=== PATIENT | female | born 1975 | race American Indian/Alaskan Native ===

== ENCOUNTER 2022-09-14 20:40 | Inpatient (IN) | payer MEDICAID ==
[2022-09-14] MEDS ORDERED: Sodium Chloride 0.9% 10 ML Syringe FLUSH PRN (20:42)
[2022-09-14] MEDS ORDERED: Sodium Chloride 0.9% 1,000 ML IV ONE (20:43)
[2022-09-14] MEDS ORDERED: cefTRIAXone 1 GM Vial IVPUSH ONE (20:43)
[2022-09-14] MEDS ORDERED: Ondansetron 4 MG/2 ML SDV IVPUSH ONE (20:47)
[2022-09-14] MEDS ORDERED: Acetaminophen 650 MG Supp RECTAL ONE (20:48)
[2022-09-14 21:21] LABS: HEMATOCRIT 35.5 % (33.0-47.0); HEMOGLOBIN 12.2 g/dL (12.0-16.0); MEAN CORPUSCULAR HEMOGLOBIN 31.6 pg (26.0-32.0); MEAN CORPUSCULAR HGB CONC 34.4 g/dL (32.0-36.0); PLATELET COUNT,PLT 411 x10^3/uL (130-400); RED BLOOD CELL COUNT 3.86 x10^6/uL (4.00-5.50)
[2022-09-14 21:30] LABS: WHITE BLOOD CELL COUNT,WBC 25.8 x10^3/uL (4.0-10.0)
[2022-09-14 21:38] LABS: BAND PERCENT MAN 7 % (0-6); LYMPHOCYTES ABSOLUTE MAN 8.8 x10^3/uL (1.0-4.8); LYMPHOCYTES PERCENT MAN 34 % (25-50); MONOCYTES ABSOLUTE MAN 1.8 x10^3/uL (0.0-0.8); MONOCYTES PERCENT MAN 7 % (2-11); NEUTROPHILS ABSOLUTE MAN 15.2 x10^3/uL (1.8-7.7); PLATELET COUNT ESTIMATE INCREASED; SEG NEUTROPHILS PERCENT MAN 52 % (50-80); TOXIC GRANULATION 1+ SLIGHT; VACUOLATED NEUTROPHILS RARE
[2022-09-14 21:40] LABS: A/G RATIO 0.81; ALBUMIN 3.8 g/dL (3.4-5.0); BILIRUBIN TOTAL 0.6 mg/dL (0.2-1.0); CALCIUM 9.7 mg/dL (8.5-10.1); CREATININE 1.3 mg/dL (0.55-1.02); EST CRCL DRUG DOSING (CG) 46.69 mL/min; POTASSIUM,K 5.5 mmol/L (3.5-5.1); PROTEIN TOTAL,TP 8.5 g/dL (6.4-8.2)
[2022-09-14 21:42] LABS: ANION GAP 18.5 mmol/L (5-15)
[2022-09-14] MEDS ORDERED: VANCOmycin 2 GM/400 ML 2 GM in Premix Bag 1 BAG IV ONE (21:46)
[2022-09-14 21:48] LABS: APPEARANCE,URINE CLEAR (CLEAR); BILIRUBIN,URINE NEGATIVE (NEGATIVE); COLOR,URINE LIGHT YELLOW (YELLOW); GLUCOSE,URINE NEGATIVE (NEGATIVE); KETONES,URINE NEGATIVE (NEGATIVE); LEUKOCYTE ESTERASE,URINE NEGATIVE (NEGATIVE); NITRITE,URINE NEGATIVE (NEGATIVE); OCCULT BLOOD,URINE NEGATIVE (NEGATIVE); PH,URINE 8.5 (5.0-8.0); PROTEIN,URINE TRACE mg/dL (NEGATIVE); UROBILINOGEN,URINE 0.2 EU/dL (0.2)
[2022-09-14] MEDS ORDERED: Piperacillin/Tazobactam 3.375 GM in Sodium Chloride 0.9% 100 ML IV ONE (21:49)
[2022-09-14 21:57] LABS: BACTERIA,URINE NOT SEEN /HPF (NOT SEEN); HYALINE CASTS,URINE RARE; MUCUS,URINE NOT SEEN /LPF (NOT SEEN); RBC,URINE 0-5 /HPF (NOT SEEN); SQUAMOUS EPITHELIAL CELLS,UR RARE /HPF (NOT SEEN); WBC,URINE 0-5 /HPF (NOT SEEN)
[2022-09-14] MEDS ORDERED: Sodium Chloride 0.9% 500 ML IV ONE (22:29)
[2022-09-14] MEDS ORDERED: Hydrocortisone 20 MG Tab PO ONE (22:30)
[2022-09-15] MEDS: Acetaminophen 325 MG Tab PO PRN ×3 (00:42→21:22)
[2022-09-15] MEDS: Sodium Chloride 0.9% 1,000 ML IV SCH (01:40)
[2022-09-15] MEDS ORDERED: oxyCODONE 5 MG Tab PO ONE (02:39)
[2022-09-15 06:50] LABS: HEMATOCRIT 34.6 % (33.0-47.0); HEMOGLOBIN 11.5 g/dL (12.0-16.0); MEAN CORPUSCULAR HEMOGLOBIN 31.4 pg (26.0-32.0); MEAN CORPUSCULAR HGB CONC 33.2 g/dL (32.0-36.0); MEAN CORPUSCULAR VOLUME 94.5 fL (78.0-93.0); PLATELET COUNT,PLT 286 x10^3/uL (130-400); RED BLOOD CELL COUNT 3.66 x10^6/uL (4.00-5.50)
[2022-09-15 06:52] LABS: WHITE BLOOD CELL COUNT,WBC 21.7 x10^3/uL (4.0-10.0)
[2022-09-15 07:07] LABS: ANION GAP 21.7 mmol/L (5-15); CALCIUM 8.7 mg/dL (8.5-10.1); CREATININE 1.4 mg/dL (0.55-1.02); EST CRCL DRUG DOSING (CG) 43.36 mL/min; POTASSIUM,K 4.7 mmol/L (3.5-5.1)
[2022-09-15 07:10] LABS: BAND PERCENT MAN 2 % (0-6); LYMPHOCYTES ABSOLUTE MAN 5.6 x10^3/uL (1.0-4.8); LYMPHOCYTES PERCENT MAN 26 % (25-50); MONOCYTES ABSOLUTE MAN 1.1 x10^3/uL (0.0-0.8); MONOCYTES PERCENT MAN 5 % (2-11); SEG NEUTROPHILS PERCENT MAN 67 % (50-80); STOMATOCYTES 1+ SLIGHT; TOXIC GRANULATION 1+ SLIGHT
[2022-09-15 07:11] LABS: PLATELET COUNT ESTIMATE ADEQUATE
[2022-09-15] MEDS ORDERED: Sennosides/Docusate Sodium 50-8.6 MG Tab PO PRN (07:33)
[2022-09-15] MEDS ORDERED: oxyCODONE 5 MG Tab PO PRN (07:33)
[2022-09-15] MEDS ORDERED: Aluminum Hydroxide/Magnesium Hydroxide/Simethicone Susp 30 ML Cup PO PRN (07:33)
[2022-09-15] MEDS ORDERED: Flumazenil 0.1 MG/ML 5 ML MDV IVPUSH PRN (07:37)
[2022-09-15] MEDS ORDERED: LORazepam 2 MG/ML SDV IVPUSH ONE (07:37)
[2022-09-15] MEDS ORDERED: Piperacillin/Tazobactam 4.5 GM in Sodium Chloride 0.9% 100 ML IV SCH (09:00)
[2022-09-15] MEDS ORDERED: Piperacillin/Tazobactam 4.5 GM in Sodium Chloride 0.9% 100 ML IV ONE (09:00)
[2022-09-15] MEDS ORDERED: HYDROmorphone 0.5 MG/0.5 ML Syringe IVPUSH PRN (09:02)
[2022-09-15] MEDS: oxyCODONE 5 MG Tab PO PRN ×2 (10:19→21:24)
[2022-09-15] MEDS: Hydrocortisone 20 MG Tab PO SCH ×2 (10:22→21:23)
[2022-09-15] MEDS: Gabapentin 300 MG Cap PO SCH ×3 (10:26→21:26)
[2022-09-15] MEDS: Lactobacillus Rhamnosus GG (Probiotic) Cap PO SCH ×3 (10:27→21:26)
[2022-09-15] MEDS: Folic Acid 1 MG Tab PO SCH (10:27)
[2022-09-15] MEDS: Magnesium Oxide 400 MG Tab PO SCH (10:27)
[2022-09-15] MEDS: Levothyroxine 125 MCG Tab PO SCH (10:28)
[2022-09-15] MEDS: Furosemide 20 MG Tab PO SCH (10:28)
[2022-09-15] MEDS: Pantoprazole 40 MG Tab.CR PO SCH (10:28)
[2022-09-15] MEDS: Polyethylene Glycol 3350 Powder 17 GM Packet PO SCH (10:30)
[2022-09-15] MEDS: Metoprolol Tartrate 25 MG Tab PO SCH ×2 (10:30→21:27)
[2022-09-15] MEDS: Topiramate 25 MG Tab PO SCH ×2 (10:30→21:26)
[2022-09-15] MEDS: Cyanocobalamin (Vitamin B12) 250 MCG Tab PO SCH (10:31)
[2022-09-15] MEDS: Insulin Glarg,Human.Rec.Analog 100 Unit/ML SUBCUT SCH ×2 (10:41→21:17)
[2022-09-15] MEDS: VICTOZA 18 MG/3 ML SQ SCH (14:09)
[2022-09-15] MEDS ORDERED: hydrALAZINE 20 MG/ML SDV IVPUSH PRN (14:33)
[2022-09-15] MEDS: Losartan 50 MG Tab PO SCH (15:07)
[2022-09-15] MEDS: Piperacillin/Tazobactam 3.375 GM in Sodium Chloride 0.9% 100 ML IV SCH ×2 (15:11→23:34)
[2022-09-15] MEDS: VORICONAZOLE 200 MG PO SCH (21:16)
[2022-09-15] MEDS: Enoxaparin 40 MG/0.4 ML Syringe SUBCUT SCH (21:21)
[2022-09-15] MEDS: hydrOXYzine HCl 25 MG Tab PO SCH (21:26)
[2022-09-16] MEDS: Sodium Chloride 0.9% 1,000 ML IV SCH ×2 (00:55→07:40)
[2022-09-16 06:55] LABS: BASOPHILS ABSOLUTE AUTO 0.1 x10^3/uL (0.0-0.2); BASOPHILS PERCENT AUTO 0.3 % (0.2-1.2); EOSINOPHILS ABSOLUTE AUTO 0.1 x10^3/uL (0.0-0.5); EOSINOPHILS PERCENT AUTO 0.3 % (0.0-4.0); HEMOGLOBIN 10.5 g/dL (12.0-16.0); IMMATURE GRAN ABSOLUTE AUTO 0.14 x10^3/uL (0.00-0.07); LYMPHOCYTES ABSOLUTE AUTO 3.9 x10^3/uL (1.0-4.8); LYMPHOCYTES PERCENT AUTO 20.6 % (25.0-50.0); MEAN CORPUSCULAR HEMOGLOBIN 31.5 pg (26.0-32.0); MEAN CORPUSCULAR VOLUME 90.1 fL (78.0-93.0); MONOCYTES ABSOLUTE AUTO 1.3 x10^3/uL (0.0-0.8); MONOCYTES PERCENT AUTO 6.7 % (2.0-11.0); NEUTROPHILS ABSOLUTE AUTO 13.3 x10^3/uL (1.8-7.7); NEUTROPHILS PERCENT AUTO 71.3 % (50.0-80.0); RED BLOOD CELL COUNT 3.33 x10^6/uL (4.00-5.50); WHITE BLOOD CELL COUNT,WBC 18.7 x10^3/uL (4.0-10.0)
[2022-09-16 07:08] LABS: PLATELET COUNT,PLT 283 x10^3/uL (130-400)
[2022-09-16 07:10] LABS: CALCIUM 8.2 mg/dL (8.5-10.1); CREATININE 1.1 mg/dL (0.55-1.02); EST CRCL DRUG DOSING (CG) 55.18 mL/min; POTASSIUM,K 3.9 mmol/L (3.5-5.1)
[2022-09-16 07:14] LABS: ANION GAP 16.9 mmol/L (5-15)
[2022-09-16] MEDS: Levothyroxine 125 MCG Tab PO SCH (08:25)
[2022-09-16] MEDS: Piperacillin/Tazobactam 3.375 GM in Sodium Chloride 0.9% 100 ML IV SCH ×2 (08:26→16:01)
[2022-09-16] MEDS: Hydrocortisone 20 MG Tab PO SCH ×2 (08:46→22:13)
[2022-09-16] MEDS: Pantoprazole 40 MG Tab.CR PO SCH (08:47)
[2022-09-16] MEDS: Magnesium Oxide 400 MG Tab PO SCH (08:47)
[2022-09-16] MEDS: Metoprolol Tartrate 25 MG Tab PO SCH ×2 (08:47→22:14)
[2022-09-16] MEDS: Gabapentin 300 MG Cap PO SCH ×3 (08:47→22:14)
[2022-09-16] MEDS: Furosemide 20 MG Tab PO SCH (08:47)
[2022-09-16] MEDS: Lactobacillus Rhamnosus GG (Probiotic) Cap PO SCH ×3 (08:48→22:13)
[2022-09-16] MEDS: VORICONAZOLE 200 MG PO SCH ×2 (08:48→22:08)
[2022-09-16] MEDS: Topiramate 25 MG Tab PO SCH ×2 (08:48→22:13)
[2022-09-16] MEDS: Folic Acid 1 MG Tab PO SCH (08:48)
[2022-09-16] MEDS: Losartan 50 MG Tab PO SCH (08:48)
[2022-09-16] MEDS: Polyethylene Glycol 3350 Powder 17 GM Packet PO SCH (08:49)
[2022-09-16] MEDS: Insulin Glarg,Human.Rec.Analog 100 Unit/ML SUBCUT SCH ×2 (08:51→22:09)
[2022-09-16] MEDS: VICTOZA 18 MG/3 ML SQ SCH (09:02)
[2022-09-16] MEDS: oxyCODONE 5 MG Tab PO PRN ×2 (09:12→17:09)
[2022-09-16] MEDS: Cyclobenzaprine 10 MG Tab PO PRN (09:14)
[2022-09-16] MEDS: Acetaminophen 325 MG Tab PO PRN ×3 (13:48→22:16)
[2022-09-16] MEDS ORDERED: Acetaminophen 650 MG Supp RECTAL PRN (17:31)
[2022-09-16] MEDS ORDERED: 50% Dextrose in Water 50 ML Syringe IVPUSH PRN (18:59)
[2022-09-16] MEDS ORDERED: Glucagon,Human Recombinant 1 MG Vial IM PRN (18:59)
[2022-09-16] MEDS: Enoxaparin 40 MG/0.4 ML Syringe SUBCUT SCH (22:09)
[2022-09-16] MEDS: hydrOXYzine HCl 25 MG Tab PO SCH (22:13)
[2022-09-16] MEDS: Insulin Lispro 100 Units/ML 3 ML Vial SUBCUT SCH (22:17)
[2022-09-17] MEDS: Piperacillin/Tazobactam 3.375 GM in Sodium Chloride 0.9% 100 ML IV SCH ×4 (00:41→23:33)
[2022-09-17] MEDS: Sodium Chloride 0.9% 1,000 ML IV SCH ×2 (00:43→14:37)
[2022-09-17] MEDS: Levothyroxine 125 MCG Tab PO SCH (06:51)
[2022-09-17] MEDS: Acetaminophen 325 MG Tab PO PRN ×2 (07:00→20:57)
[2022-09-17] MEDS: oxyCODONE 5 MG Tab PO PRN ×2 (07:01→16:31)
[2022-09-17] MEDS: Insulin Lispro 100 Units/ML 3 ML Vial SUBCUT SCH ×4 (07:42→20:43)
[2022-09-17 07:44] LABS: HEMATOCRIT 29.2 % (33.0-47.0); HEMOGLOBIN 10.1 g/dL (12.0-16.0); MEAN CORPUSCULAR HEMOGLOBIN 31.5 pg (26.0-32.0); MEAN CORPUSCULAR HGB CONC 34.6 g/dL (32.0-36.0); RED BLOOD CELL COUNT 3.21 x10^6/uL (4.00-5.50); WHITE BLOOD CELL COUNT,WBC 13.4 x10^3/uL (4.0-10.0)
[2022-09-17 07:54] LABS: CALCIUM 8.1 mg/dL (8.5-10.1); CREATININE 1.1 mg/dL (0.55-1.02); EST CRCL DRUG DOSING (CG) 55.18 mL/min; POTASSIUM,K 4.1 mmol/L (3.5-5.1)
[2022-09-17 07:55] LABS: ANION GAP 17.1 mmol/L (5-15)
[2022-09-17] MEDS: Folic Acid 1 MG Tab PO SCH (08:28)
[2022-09-17] MEDS: Pantoprazole 40 MG Tab.CR PO SCH (08:28)
[2022-09-17] MEDS: Furosemide 20 MG Tab PO SCH (08:28)
[2022-09-17] MEDS: Hydrocortisone 20 MG Tab PO SCH ×2 (08:28→20:51)
[2022-09-17] MEDS: Magnesium Oxide 400 MG Tab PO SCH (08:29)
[2022-09-17] MEDS: Topiramate 25 MG Tab PO SCH ×2 (08:29→20:52)
[2022-09-17] MEDS: Losartan 50 MG Tab PO SCH (08:29)
[2022-09-17] MEDS: Gabapentin 300 MG Cap PO SCH ×3 (08:29→20:53)
[2022-09-17] MEDS: Lactobacillus Rhamnosus GG (Probiotic) Cap PO SCH ×3 (08:29→20:53)
[2022-09-17] MEDS: Metoprolol Tartrate 25 MG Tab PO SCH ×2 (08:29→20:54)
[2022-09-17] MEDS: Insulin Glarg,Human.Rec.Analog 100 Unit/ML SUBCUT SCH ×2 (08:31→20:45)
[2022-09-17] MEDS: Polyethylene Glycol 3350 Powder 17 GM Packet PO SCH (08:42)
[2022-09-17] MEDS: VORICONAZOLE 200 MG PO SCH ×2 (08:43→20:50)
[2022-09-17] MEDS: VICTOZA 18 MG/3 ML SQ SCH (08:43)
[2022-09-17] MEDS: Cyanocobalamin (Vitamin B12) 250 MCG Tab PO SCH (08:46)
[2022-09-17] MEDS: Cyclobenzaprine 10 MG Tab PO PRN (16:30)
[2022-09-17] MEDS: Enoxaparin 40 MG/0.4 ML Syringe SUBCUT SCH (20:47)
[2022-09-17] MEDS: hydrOXYzine HCl 25 MG Tab PO SCH (20:53)
[2022-09-18] MEDS: Sodium Chloride 0.9% 1,000 ML IV SCH ×3 (04:05→23:59)
[2022-09-18] MEDS: Acetaminophen 325 MG Tab PO PRN ×2 (06:14→19:48)
[2022-09-18] MEDS: Levothyroxine 125 MCG Tab PO SCH (06:14)
[2022-09-18] MEDS: Insulin Lispro 100 Units/ML 3 ML Vial SUBCUT SCH ×4 (07:32→20:21)
[2022-09-18 07:54] LABS: BASOPHILS PERCENT AUTO 0.2 % (0.2-1.2); EOSINOPHILS PERCENT AUTO 0.4 % (0.0-4.0); HEMATOCRIT 27.2 % (33.0-47.0); LYMPHOCYTES ABSOLUTE AUTO 2.7 x10^3/uL (1.0-4.8); LYMPHOCYTES PERCENT AUTO 24.7 % (25.0-50.0); MEAN CORPUSCULAR HEMOGLOBIN 31.6 pg (26.0-32.0); MEAN CORPUSCULAR HGB CONC 33.1 g/dL (32.0-36.0); MEAN CORPUSCULAR VOLUME 95.4 fL (78.0-93.0); MONOCYTES ABSOLUTE AUTO 0.5 x10^3/uL (0.0-0.8); MONOCYTES PERCENT AUTO 4.7 % (2.0-11.0); NEUTROPHILS ABSOLUTE AUTO 7.4 x10^3/uL (1.8-7.7); NEUTROPHILS PERCENT AUTO 69.1 % (50.0-80.0); PLATELET COUNT,PLT 277 x10^3/uL (130-400); RED BLOOD CELL COUNT 2.85 x10^6/uL (4.00-5.50); WHITE BLOOD CELL COUNT,WBC 10.8 x10^3/uL (4.0-10.0)
[2022-09-18] MEDS: Hydrocortisone 20 MG Tab PO SCH ×2 (08:14→20:02)
[2022-09-18] MEDS: Metoprolol Tartrate 25 MG Tab PO SCH ×2 (08:14→20:00)
[2022-09-18] MEDS: Gabapentin 300 MG Cap PO SCH ×3 (08:14→20:00)
[2022-09-18] MEDS: Lactobacillus Rhamnosus GG (Probiotic) Cap PO SCH ×3 (08:14→20:00)
[2022-09-18] MEDS: Topiramate 25 MG Tab PO SCH ×2 (08:14→20:00)
[2022-09-18 08:16] LABS: A/G RATIO 0.69; ALBUMIN 2.5 g/dL (3.4-5.0); ANION GAP 12.8 mmol/L (5-15); BILIRUBIN TOTAL 0.3 mg/dL (0.2-1.0); CALCIUM 8.3 mg/dL (8.5-10.1); CREATININE 1.3 mg/dL (0.55-1.02); EST CRCL DRUG DOSING (CG) 46.69 mL/min; MAGNESIUM 1.9 mg/dL (1.8-2.4); POTASSIUM,K 3.8 mmol/L (3.5-5.1); PROTEIN TOTAL,TP 6.1 g/dL (6.4-8.2)
[2022-09-18] MEDS: Magnesium Oxide 400 MG Tab PO SCH (08:17)
[2022-09-18] MEDS: Piperacillin/Tazobactam 3.375 GM in Sodium Chloride 0.9% 100 ML IV SCH ×2 (08:17→15:56)
[2022-09-18] MEDS: Pantoprazole 40 MG Tab.CR PO SCH (08:17)
[2022-09-18] MEDS: Folic Acid 1 MG Tab PO SCH (08:17)
[2022-09-18] MEDS: Losartan 50 MG Tab PO SCH (08:17)
[2022-09-18] MEDS: Furosemide 20 MG Tab PO SCH (08:17)
[2022-09-18] MEDS: Insulin Glarg,Human.Rec.Analog 100 Unit/ML SUBCUT SCH ×2 (08:18→20:01)
[2022-09-18] MEDS: VICTOZA 18 MG/3 ML SQ SCH (08:18)
[2022-09-18] MEDS: Polyethylene Glycol 3350 Powder 17 GM Packet PO SCH (08:19)
[2022-09-18] MEDS: VORICONAZOLE 200 MG PO SCH ×2 (08:19→20:01)
[2022-09-18] MEDS ORDERED: Furosemide 40 MG/4 ML VIAL IV ONE (09:03)
[2022-09-18] MEDS: Cyclobenzaprine 10 MG Tab PO PRN ×2 (09:46→19:49)
[2022-09-18] MEDS: oxyCODONE 5 MG Tab PO PRN (09:47)
[2022-09-18] MEDS: hydrOXYzine HCl 25 MG Tab PO SCH (20:00)
[2022-09-18] MEDS: Enoxaparin 40 MG/0.4 ML Syringe SUBCUT SCH (20:03)
[2022-09-18] MEDS ORDERED: Glucagon,Human Recombinant 1 MG Vial IM PRN (20:18)
[2022-09-18] MEDS ORDERED: 50% Dextrose in Water 50 ML Syringe IVPUSH PRN (20:18)
[2022-09-18] MEDS ORDERED: Insulin Regular, Human 100 Units/ML 3 ML Vial SUBCUT ONE (20:20)
[2022-09-19] MEDS: Piperacillin/Tazobactam 3.375 GM in Sodium Chloride 0.9% 100 ML IV SCH ×3 (00:35→16:07)
[2022-09-19] MEDS: oxyCODONE 5 MG Tab PO PRN ×2 (06:09→16:14)
[2022-09-19] MEDS: Levothyroxine 125 MCG Tab PO SCH (06:11)
[2022-09-19 06:45] LABS: BASOPHILS PERCENT AUTO 0.2 % (0.2-1.2); EOSINOPHILS PERCENT AUTO 0.2 % (0.0-4.0); HEMOGLOBIN 8.9 g/dL (12.0-16.0); IMMATURE GRAN ABSOLUTE AUTO 0.08 x10^3/uL (0.00-0.07); LYMPHOCYTES ABSOLUTE AUTO 2.1 x10^3/uL (1.0-4.8); LYMPHOCYTES PERCENT AUTO 24.4 % (25.0-50.0); MEAN CORPUSCULAR HEMOGLOBIN 31.8 pg (26.0-32.0); MEAN CORPUSCULAR HGB CONC 34.2 g/dL (32.0-36.0); MEAN CORPUSCULAR VOLUME 92.9 fL (78.0-93.0); MONOCYTES ABSOLUTE AUTO 0.5 x10^3/uL (0.0-0.8); MONOCYTES PERCENT AUTO 5.9 % (2.0-11.0); NEUTROPHILS ABSOLUTE AUTO 5.9 x10^3/uL (1.8-7.7); NEUTROPHILS PERCENT AUTO 68.4 % (50.0-80.0); PLATELET COUNT,PLT 296 x10^3/uL (130-400); WHITE BLOOD CELL COUNT,WBC 8.7 x10^3/uL (4.0-10.0)
[2022-09-19 07:06] LABS: A/G RATIO 0.74; ALBUMIN 2.5 g/dL (3.4-5.0); BILIRUBIN TOTAL 0.2 mg/dL (0.2-1.0); CALCIUM 8.1 mg/dL (8.5-10.1); CREATININE 1.1 mg/dL (0.55-1.02); EST CRCL DRUG DOSING (CG) 55.18 mL/min; POTASSIUM,K 3.3 mmol/L (3.5-5.1); PROTEIN TOTAL,TP 5.9 g/dL (6.4-8.2)
[2022-09-19 07:07] LABS: ANION GAP 13.3 mmol/L (5-15)
[2022-09-19] MEDS: Insulin Lispro 100 Units/ML 3 ML Vial SUBCUT SCH ×4 (07:20→20:20)
[2022-09-19] MEDS: Polyethylene Glycol 3350 Powder 17 GM Packet PO SCH (08:36)
[2022-09-19] MEDS: Magnesium Oxide 400 MG Tab PO SCH (08:37)
[2022-09-19] MEDS: Pantoprazole 40 MG Tab.CR PO SCH (08:37)
[2022-09-19] MEDS: Lactobacillus Rhamnosus GG (Probiotic) Cap PO SCH ×3 (08:37→20:21)
[2022-09-19] MEDS: Metoprolol Tartrate 25 MG Tab PO SCH ×2 (08:37→20:24)
[2022-09-19] MEDS: Losartan 50 MG Tab PO SCH (08:37)
[2022-09-19] MEDS: Furosemide 20 MG Tab PO SCH (08:37)
[2022-09-19] MEDS: Topiramate 25 MG Tab PO SCH ×2 (08:37→20:21)
[2022-09-19] MEDS: Folic Acid 1 MG Tab PO SCH (08:37)
[2022-09-19] MEDS: Gabapentin 300 MG Cap PO SCH ×3 (08:37→20:21)
[2022-09-19] MEDS: Insulin Glarg,Human.Rec.Analog 100 Unit/ML SUBCUT SCH ×2 (08:40→20:18)
[2022-09-19] MEDS: VORICONAZOLE 200 MG PO SCH ×2 (08:44→20:24)
[2022-09-19] MEDS: VICTOZA 18 MG/3 ML SQ SCH (08:45)
[2022-09-19] MEDS: Potassium Chloride 10 MEQ Tab.ER PO SCH (09:42)
[2022-09-19] MEDS: Cyanocobalamin (Vitamin B12) 250 MCG Tab PO SCH (09:42)
[2022-09-19] MEDS: Hydrocortisone 20 MG Tab PO SCH ×2 (10:32→10:39)
[2022-09-19] MEDS ORDERED: Loperamide 2 MG Cap PO PRN (12:54)
[2022-09-19] MEDS: Cyclobenzaprine 10 MG Tab PO PRN (20:21)
[2022-09-19] MEDS: hydrOXYzine HCl 25 MG Tab PO SCH (20:21)
[2022-09-19] MEDS: Enoxaparin 40 MG/0.4 ML Syringe SUBCUT SCH (20:24)
[2022-09-20] MEDS: Insulin Lispro 100 Units/ML 3 ML Vial SUBCUT SCH ×2 (06:51→11:37)
[2022-09-20] MEDS: Acetaminophen 325 MG Tab PO PRN (06:52)
[2022-09-20] MEDS: Cyclobenzaprine 10 MG Tab PO PRN (06:52)
[2022-09-20] MEDS: Levothyroxine 125 MCG Tab PO SCH (06:53)
[2022-09-20] MEDS ORDERED: Amoxicillin/Clavulanate K 875-125 MG Tab PO SCH (09:00)
[2022-09-20] MEDS: Potassium Chloride 10 MEQ Tab.ER PO SCH (09:41)
[2022-09-20] MEDS: VORICONAZOLE 200 MG PO SCH (09:41)
[2022-09-20] MEDS: Pantoprazole 40 MG Tab.CR PO SCH (09:41)
[2022-09-20] MEDS: Lactobacillus Rhamnosus GG (Probiotic) Cap PO SCH (09:42)
[2022-09-20] MEDS: Furosemide 20 MG Tab PO SCH (09:42)
[2022-09-20] MEDS: Losartan 50 MG Tab PO SCH (09:42)
[2022-09-20] MEDS: Metoprolol Tartrate 25 MG Tab PO SCH (09:42)
[2022-09-20] MEDS: Gabapentin 300 MG Cap PO SCH (09:42)
[2022-09-20] MEDS: Folic Acid 1 MG Tab PO SCH (09:42)
[2022-09-20] MEDS: Hydrocortisone 20 MG Tab PO SCH (09:43)
[2022-09-20] MEDS: Magnesium Oxide 400 MG Tab PO SCH (09:43)
[2022-09-20] MEDS: VICTOZA 18 MG/3 ML SQ SCH (09:43)
[2022-09-20] MEDS: Topiramate 25 MG Tab PO SCH (09:43)
[2022-09-20] MEDS: Polyethylene Glycol 3350 Powder 17 GM Packet PO SCH (09:43)
[2022-09-20] MEDS: Insulin Glarg,Human.Rec.Analog 100 Unit/ML SUBCUT SCH (09:44)
== END 2022-09-20 11:35 | DRG 871 ==
LOC: VM.ED 20:40 → VM.MS 22:02
PROVIDERS: ADMIT Family Medicine; ATTEND Family Medicine
DX: A41.9 Sepsis, unspecified organism (principal); J18.9 Pneumonia, unspecified organism; R00.0 Tachycardia, unspecified; R65.21 Severe sepsis with septic shock; E11.40 Type 2 diabetes mellitus with diabetic neuropathy, unspecified; I10 Essential (primary) hypertension; E78.00 Pure hypercholesterolemia, unspecified; J69.0 Pneumonitis due to inhalation of food and vomit; N13.39 Other hydronephrosis; B49 Unspecified mycosis; E27.49 Other adrenocortical insufficiency; N17.9 Acute kidney failure, unspecified; E11.65 Type 2 diabetes mellitus with hyperglycemia; K04.7 Periapical abscess without sinus; I12.9 Hypertensive chronic kidney disease with stage 1 through stage 4 chronic kidney disease, or unspecified chronic kidney disease; N18.9 Chronic kidney disease, unspecified; E11.22 Type 2 diabetes mellitus with diabetic chronic kidney disease; E87.6 Hypokalemia; R56.9 Unspecified convulsions; E78.5 Hyperlipidemia, unspecified; E66.9 Obesity, unspecified; M81.0 Age-related osteoporosis without current pathological fracture; K21.9 Gastro-esophageal reflux disease without esophagitis; N31.9 Neuromuscular dysfunction of bladder, unspecified; F41.9 Anxiety disorder, unspecified; F31.9 Bipolar disorder, unspecified; F25.9 Schizoaffective disorder, unspecified; E11.42 Type 2 diabetes mellitus with diabetic polyneuropathy; E87.5 Hyperkalemia; G44.221 Chronic tension-type headache, intractable; E53.8 Deficiency of other specified B group vitamins; K59.00 Constipation, unspecified; F98.8 Other specified behavioral and emotional disorders with onset usually occurring in childhood and adolescence; F90.9 Attention-deficit hyperactivity disorder, unspecified type; F43.10 Post-traumatic stress disorder, unspecified; Z90.49 Acquired absence of other specified parts of digestive tract; Z96.649 Presence of unspecified artificial hip joint; Z98.890 Other specified postprocedural states; Z87.891 Personal history of nicotine dependence; Z88.8 Allergy status to other drugs, medicaments and biological substances; Z79.4 Long term (current) use of insulin; Z79.899 Other long term (current) drug therapy; Z68.39 Body mass index [BMI] 39.0-39.9, adult
CPT/HCPCS: 36415; 71045; 80053; 81001; 83605; 85025; 87040 ×2; 93010; 96361; 96374; 96375; 99284; 99285; A9270; J0696; J2405; J2543; J3490; J7030; 51702; 70450; 70490; 72125; 74176; 80048; 82947; 83735; 84145; 85027; 86140; 87070; 97162-GP; J1170; J1650; J1815-GY; J1940; J2060; J3370

== ENCOUNTER 2022-12-16 12:22 | Inpatient (IN) | payer MEDICAID ==
[2022-12-16] MEDS ORDERED: Sodium Chloride 0.9% 1,000 ML IV ONE (12:59)
[2022-12-16] MEDS ORDERED: Naloxone 0.4 MG/ML SDV IVPUSH PRN (13:02)
[2022-12-16] MEDS ORDERED: fentaNYL 50 MCG/ML SDV IVPUSH ONE (13:02)
[2022-12-16 13:06] LABS: BASOPHILS ABSOLUTE AUTO 0.1 x10^3/uL (0.0-0.2); BASOPHILS PERCENT AUTO 0.4 % (0.2-1.2); EOSINOPHILS ABSOLUTE AUTO 0.3 x10^3/uL (0.0-0.5); EOSINOPHILS PERCENT AUTO 1.9 % (0.0-4.0); HEMATOCRIT 40.4 % (33.0-47.0); HEMOGLOBIN 13.3 g/dL (12.0-16.0); IMMATURE GRAN ABSOLUTE AUTO 0.46 x10^3/uL (0.00-0.07); LYMPHOCYTES PERCENT AUTO 19.6 % (25.0-50.0); MEAN CORPUSCULAR HEMOGLOBIN 30.8 pg (26.0-32.0); MEAN CORPUSCULAR HGB CONC 32.9 g/dL (32.0-36.0); MEAN CORPUSCULAR VOLUME 93.5 fL (78.0-93.0); MONOCYTES ABSOLUTE AUTO 1.2 x10^3/uL (0.0-0.8); MONOCYTES PERCENT AUTO 7.7 % (2.0-11.0); NEUTROPHILS ABSOLUTE AUTO 10.2 x10^3/uL (1.8-7.7); NEUTROPHILS PERCENT AUTO 67.4 % (50.0-80.0); PLATELET COUNT,PLT 334 x10^3/uL (130-400); RED BLOOD CELL COUNT 4.32 x10^6/uL (4.00-5.50); WHITE BLOOD CELL COUNT,WBC 15.1 x10^3/uL (4.0-10.0)
[2022-12-16 13:25] LABS: A/G RATIO 0.67; ALANINE AMINOTRANSFERASE,ALT 63 U/L (14-59); ALBUMIN 3.2 g/dL (3.4-5.0); ALKALINE PHOSPHATASE 841 U/L (46-116); ASPARTATE AMNIOTRANSFERASE,AST 65 U/L (15-37); BILIRUBIN TOTAL 0.9 mg/dL (0.2-1.0); BLOOD UREA NITROGEN,BUN 42 mg/dL (7-18); C-REACTIVE PROTEIN 6.97 mg/dL (<=0.30); CALCIUM 9.6 mg/dL (8.5-10.1); CARBON DIOXIDE,CO2 24 mmol/L (21-32); CHLORIDE,CL 96 mmol/L (98-107); CREATININE 1.4 mg/dL (0.55-1.02); GLUCOSE RANDOM 250 mg/dL (70-99); POTASSIUM,K 4.8 mmol/L (3.5-5.1); SODIUM,NA 133 mmol/L (136-145)
[2022-12-16 13:28] LABS: ANION GAP 17.8 mmol/L (5-15); ESTIMATED GFR 47 mL/min (>=60)
[2022-12-16 13:34] LABS: LIPASE 1415 U/L (19-71)
[2022-12-16] MEDS ORDERED: Iopamidol 612 MG/ML 100 ML Bottle IVPUSH ONE (13:57)
[2022-12-16] MEDS ORDERED: HYDROmorphone 0.5 MG/0.5 ML Syringe IVPUSH ONE (15:14)
[2022-12-16] MEDS ORDERED: Menthol 10%/Methyl Salicylate 15% 85 GM Tube TOP PRN ×2 (17:02)
[2022-12-16] MEDS ORDERED: DIMETHICONE TOP PRN (17:02)
[2022-12-16] MEDS ORDERED: Lidocaine 4% 1 each Patch TOP PRN (17:02)
[2022-12-16] MEDS ORDERED: Bisacodyl 10 MG Supp RECTAL PRN (17:02)
[2022-12-16] MEDS ORDERED: Hypromellose 0.3% Ophth Soln 15 ML Bottle EYEBOTH PRN (17:02)
[2022-12-16] MEDS ORDERED: Pantoprazole 40 MG Vial IVPUSH ONE (17:10)
[2022-12-16] MEDS: HYDROmorphone 0.5 MG/0.5 ML Syringe IVPUSH PRN ×2 (17:30→20:44)
[2022-12-16 18:11] LABS: CHOLESTEROL HDL 29 mg/dL (40-59); CHOLESTEROL TOTAL 380 mg/dL (0-199); TRIGLYCERIDES 970 mg/dL (0-149)
[2022-12-16] MEDS: Sodium Chloride 0.9% 1,000 ML IV SCH (18:24)
[2022-12-16] MEDS: Topiramate 25 MG Tab PO SCH (20:50)
[2022-12-16] MEDS: Gabapentin 300 MG Cap PO SCH (20:50)
[2022-12-16] MEDS: hydrOXYzine HCl 25 MG Tab PO SCH (20:51)
[2022-12-16] MEDS: Metoprolol Tartrate 25 MG Tab PO SCH (20:51)
[2022-12-16] MEDS: Melatonin 3 MG Tab PO SCH (20:51)
[2022-12-17] MEDS: HYDROmorphone 0.5 MG/0.5 ML Syringe IVPUSH PRN ×9 (00:27→21:52)
[2022-12-17] MEDS: Sodium Chloride 0.9% 1,000 ML IV SCH ×3 (02:12→17:01)
[2022-12-17 02:24] LABS: BILIRUBIN,URINE NEGATIVE (NEGATIVE); COLOR,URINE YELLOW (YELLOW); GLUCOSE,URINE 500 mg/dL (NEGATIVE); KETONES,URINE 15 mg/dL (NEGATIVE); LEUKOCYTE ESTERASE,URINE MODERATE (NEGATIVE); NITRITE,URINE NEGATIVE (NEGATIVE); OCCULT BLOOD,URINE TRACE-INTACT (NEGATIVE); PH,URINE 5.5 (5.0-8.0); PROTEIN,URINE NEGATIVE (NEGATIVE); UROBILINOGEN,URINE 0.2 EU/dL (0.2)
[2022-12-17 02:32] LABS: APPEARANCE,URINE CLOUDY (CLEAR)
[2022-12-17 02:33] LABS: BACTERIA,URINE MANY /HPF (NOT SEEN); RBC,URINE 0-5 /HPF (NOT SEEN); SQUAMOUS EPITHELIAL CELLS,UR OCCASIONAL /HPF (NOT SEEN)
[2022-12-17] MEDS: Levothyroxine 125 MCG Tab PO SCH (06:38)
[2022-12-17] MEDS: Gemfibrozil 600 MG Tab PO SCH ×2 (06:38→16:59)
[2022-12-17] MEDS ORDERED: 50% Dextrose in Water 50 ML Syringe IVPUSH PRN ×2 (07:54→20:57)
[2022-12-17] MEDS ORDERED: Glucagon,Human Recombinant 1 MG Vial IM PRN ×2 (07:54→20:57)
[2022-12-17 08:01] LABS: BASOPHILS ABSOLUTE AUTO 0.1 x10^3/uL (0.0-0.2); BASOPHILS PERCENT AUTO 0.4 % (0.2-1.2); EOSINOPHILS ABSOLUTE AUTO 0.4 x10^3/uL (0.0-0.5); EOSINOPHILS PERCENT AUTO 3.4 % (0.0-4.0); HEMATOCRIT 32.9 % (33.0-47.0); HEMOGLOBIN 10.8 g/dL (12.0-16.0); IMMATURE GRAN ABSOLUTE AUTO 0.37 x10^3/uL (0.00-0.07); LYMPHOCYTES ABSOLUTE AUTO 2.7 x10^3/uL (1.0-4.8); MEAN CORPUSCULAR HEMOGLOBIN 31.6 pg (26.0-32.0); MEAN CORPUSCULAR HGB CONC 32.8 g/dL (32.0-36.0); MEAN CORPUSCULAR VOLUME 96.2 fL (78.0-93.0); MONOCYTES PERCENT AUTO 8.2 % (2.0-11.0); NEUTROPHILS ABSOLUTE AUTO 7.3 x10^3/uL (1.8-7.7); NEUTROPHILS PERCENT AUTO 61.9 % (50.0-80.0); PLATELET COUNT,PLT 296 x10^3/uL (130-400); RED BLOOD CELL COUNT 3.42 x10^6/uL (4.00-5.50); WHITE BLOOD CELL COUNT,WBC 11.8 x10^3/uL (4.0-10.0)
[2022-12-17 08:12] LABS: INR 0.9 (0.9-1.1)
[2022-12-17 08:17] LABS: A/G RATIO 0.66; ALBUMIN 2.5 g/dL (3.4-5.0); ANION GAP 16.9 mmol/L (5-15); BILIRUBIN TOTAL 0.6 mg/dL (0.2-1.0); CALCIUM 8.6 mg/dL (8.5-10.1); CREATININE 1.2 mg/dL (0.55-1.02); EST CRCL DRUG DOSING (CG) 50.58 mL/min; POTASSIUM,K 4.9 mmol/L (3.5-5.1); PROTEIN TOTAL,TP 6.3 g/dL (6.4-8.2)
[2022-12-17] MEDS: Gabapentin 300 MG Cap PO SCH ×3 (08:34→21:59)
[2022-12-17] MEDS: Topiramate 25 MG Tab PO SCH ×2 (08:34→21:58)
[2022-12-17] MEDS: Metoprolol Tartrate 25 MG Tab PO SCH ×2 (08:34→21:58)
[2022-12-17] MEDS: Enoxaparin 40 MG/0.4 ML Syringe SUBCUT SCH (08:35)
[2022-12-17] MEDS: Insulin Glarg,Human.Rec.Analog 100 Unit/ML 10 ML Vial SUBCUT SCH (08:38)
[2022-12-17] MEDS: Ondansetron 4 MG/2 ML SDV IV PRN ×2 (08:43→21:49)
[2022-12-17] MEDS: cefTRIAXone 1 GM Vial IVPUSH SCH (08:43)
[2022-12-17] MEDS: Hydrocortisone Sodium Succinate 100 MG/2 ML SDV IVPUSH SCH ×2 (08:51→21:56)
[2022-12-17] MEDS ORDERED: Hydrocortisone 20 MG Tab PO SCH ×2 (09:00)
[2022-12-17] MEDS: Melatonin 3 MG Tab PO SCH (21:58)
[2022-12-17] MEDS: hydrOXYzine HCl 25 MG Tab PO SCH (21:59)
[2022-12-17] MEDS ORDERED: Insulin Glarg,Human.Rec.Analog 100 Unit/ML 10 ML Vial SUBCUT SCH (22:00)
[2022-12-18] MEDS: Sodium Chloride 0.9% 1,000 ML IV SCH (01:25)
[2022-12-18] MEDS: HYDROmorphone 0.5 MG/0.5 ML Syringe IVPUSH PRN ×7 (02:18→22:59)
[2022-12-18] MEDS: Levothyroxine 125 MCG Tab PO SCH ×2 (05:47→06:02)
[2022-12-18] MEDS: Gemfibrozil 600 MG Tab PO SCH ×3 (05:47→16:33)
[2022-12-18] MEDS: Ondansetron 4 MG/2 ML SDV IV PRN ×2 (05:51→19:15)
[2022-12-18 07:54] LABS: BASOPHILS PERCENT AUTO 0.2 % (0.2-1.2); EOSINOPHILS ABSOLUTE AUTO 0.2 x10^3/uL (0.0-0.5); EOSINOPHILS PERCENT AUTO 1.7 % (0.0-4.0); HEMATOCRIT 31.2 % (33.0-47.0); HEMOGLOBIN 10.2 g/dL (12.0-16.0); LYMPHOCYTES ABSOLUTE AUTO 3.3 x10^3/uL (1.0-4.8); LYMPHOCYTES PERCENT AUTO 27.1 % (25.0-50.0); MEAN CORPUSCULAR HEMOGLOBIN 31.1 pg (26.0-32.0); MEAN CORPUSCULAR HGB CONC 32.7 g/dL (32.0-36.0); MEAN CORPUSCULAR VOLUME 95.1 fL (78.0-93.0); MONOCYTES ABSOLUTE AUTO 0.9 x10^3/uL (0.0-0.8); MONOCYTES PERCENT AUTO 7.4 % (2.0-11.0); NEUTROPHILS ABSOLUTE AUTO 7.4 x10^3/uL (1.8-7.7); NEUTROPHILS PERCENT AUTO 60.3 % (50.0-80.0); PLATELET COUNT,PLT 284 x10^3/uL (130-400); RED BLOOD CELL COUNT 3.28 x10^6/uL (4.00-5.50); WHITE BLOOD CELL COUNT,WBC 12.2 x10^3/uL (4.0-10.0)
[2022-12-18 08:09] LABS: CALCIUM 8.7 mg/dL (8.5-10.1); EST CRCL DRUG DOSING (CG) 60.7 mL/min; POTASSIUM,K 5.1 mmol/L (3.5-5.1)
[2022-12-18 08:11] LABS: ANION GAP 18.1 mmol/L (5-15)
[2022-12-18] MEDS ORDERED: 50% Dextrose in Water 50 ML Syringe IVPUSH PRN (09:02)
[2022-12-18] MEDS ORDERED: Glucagon,Human Recombinant 1 MG Vial IM PRN (09:02)
[2022-12-18] MEDS: Enoxaparin 40 MG/0.4 ML Syringe SUBCUT SCH (09:13)
[2022-12-18] MEDS: cefTRIAXone 1 GM Vial IVPUSH SCH (09:14)
[2022-12-18] MEDS: Gabapentin 300 MG Cap PO SCH ×3 (09:17→20:35)
[2022-12-18] MEDS: Metoprolol Tartrate 25 MG Tab PO SCH ×2 (09:18→20:34)
[2022-12-18] MEDS: Hydrocortisone Sodium Succinate 100 MG/2 ML SDV IVPUSH SCH ×2 (09:22→19:15)
[2022-12-18] MEDS: Topiramate 25 MG Tab PO SCH ×2 (09:25→20:34)
[2022-12-18] MEDS: Insulin Lispro 100 Units/ML 3 ML Vial SUBCUT SCH ×2 (12:06→17:57)
[2022-12-18] MEDS: Insulin Glarg,Human.Rec.Analog 100 Unit/ML 10 ML Vial SUBCUT SCH (13:34)
[2022-12-18] MEDS: Melatonin 3 MG Tab PO SCH (20:34)
[2022-12-18] MEDS: hydrOXYzine HCl 25 MG Tab PO SCH (20:35)
[2022-12-18] MEDS ORDERED: Insulin Glarg,Human.Rec.Analog 100 Unit/ML 10 ML Vial SUBCUT SCH (21:00)
[2022-12-19] MEDS: HYDROmorphone 0.5 MG/0.5 ML Syringe IVPUSH PRN ×3 (01:59→06:38)
[2022-12-19] MEDS: Ondansetron 4 MG/2 ML SDV IV PRN (02:00)
[2022-12-19] MEDS: Levothyroxine 125 MCG Tab PO SCH (06:39)
[2022-12-19] MEDS: Gemfibrozil 600 MG Tab PO SCH ×2 (06:39→19:20)
[2022-12-19 07:04] LABS: BASOPHILS PERCENT AUTO 0.4 % (0.2-1.2); EOSINOPHILS ABSOLUTE AUTO 0.3 x10^3/uL (0.0-0.5); EOSINOPHILS PERCENT AUTO 2.7 % (0.0-4.0); HEMATOCRIT 30.7 % (33.0-47.0); IMMATURE GRAN ABSOLUTE AUTO 0.26 x10^3/uL (0.00-0.07); LYMPHOCYTES ABSOLUTE AUTO 2.9 x10^3/uL (1.0-4.8); LYMPHOCYTES PERCENT AUTO 28.5 % (25.0-50.0); MEAN CORPUSCULAR HEMOGLOBIN 31.3 pg (26.0-32.0); MEAN CORPUSCULAR HGB CONC 32.6 g/dL (32.0-36.0); MEAN CORPUSCULAR VOLUME 96.2 fL (78.0-93.0); MONOCYTES ABSOLUTE AUTO 0.7 x10^3/uL (0.0-0.8); MONOCYTES PERCENT AUTO 7.3 % (2.0-11.0); NEUTROPHILS PERCENT AUTO 58.5 % (50.0-80.0); PLATELET COUNT,PLT 300 x10^3/uL (130-400); RED BLOOD CELL COUNT 3.19 x10^6/uL (4.00-5.50); WHITE BLOOD CELL COUNT,WBC 10.2 x10^3/uL (4.0-10.0)
[2022-12-19 07:21] LABS: A/G RATIO 0.57; ALBUMIN 2.4 g/dL (3.4-5.0); ANION GAP 17.1 mmol/L (5-15); BILIRUBIN TOTAL 0.3 mg/dL (0.2-1.0); CALCIUM 8.6 mg/dL (8.5-10.1); CREATININE 0.9 mg/dL (0.55-1.02); EST CRCL DRUG DOSING (CG) 67.45 mL/min; POTASSIUM,K 5.1 mmol/L (3.5-5.1); PROTEIN TOTAL,TP 6.6 g/dL (6.4-8.2)
[2022-12-19] MEDS: Metoprolol Tartrate 25 MG Tab PO SCH ×2 (08:45→20:06)
[2022-12-19] MEDS: Topiramate 25 MG Tab PO SCH ×2 (08:45→20:07)
[2022-12-19] MEDS: cefTRIAXone 1 GM Vial IVPUSH SCH (08:45)
[2022-12-19] MEDS: Gabapentin 300 MG Cap PO SCH ×3 (08:45→20:06)
[2022-12-19] MEDS: Enoxaparin 40 MG/0.4 ML Syringe SUBCUT SCH (08:51)
[2022-12-19] MEDS: Insulin Lispro 100 Units/ML 3 ML Vial SUBCUT SCH ×4 (08:55→21:37)
[2022-12-19] MEDS: Hydrocortisone Sodium Succinate 100 MG/2 ML SDV IVPUSH SCH ×2 (08:56→20:06)
[2022-12-19] MEDS: fentaNYL 50 MCG/ML SDV IVPUSH PRN ×3 (09:47→19:48)
[2022-12-19] MEDS: Metoclopramide 10 MG/2 ML SDV IVPUSH SCH ×3 (09:49→21:31)
[2022-12-19] MEDS: Insulin Glarg,Human.Rec.Analog 100 Unit/ML 10 ML Vial SUBCUT SCH ×2 (09:53→20:07)
[2022-12-19] MEDS: VORICONAZOLE 200 MG PO SCH ×3 (15:17→19:40)
[2022-12-19] MEDS: Acetaminophen 325 MG Tab PO PRN (20:05)
[2022-12-19] MEDS: hydrOXYzine HCl 25 MG Tab PO SCH (20:06)
[2022-12-19] MEDS: Melatonin 3 MG Tab PO SCH (20:06)
[2022-12-20] MEDS: fentaNYL 50 MCG/ML SDV IVPUSH PRN ×2 (02:13→06:18)
[2022-12-20] MEDS: Metoclopramide 10 MG/2 ML SDV IVPUSH SCH ×6 (02:13→22:01)
[2022-12-20] MEDS: Acetaminophen 325 MG Tab PO PRN ×4 (02:14→22:07)
[2022-12-20] MEDS: Levothyroxine 125 MCG Tab PO SCH (06:18)
[2022-12-20] MEDS: Gemfibrozil 600 MG Tab PO SCH ×2 (06:18→17:45)
[2022-12-20 06:54] LABS: BASOPHILS PERCENT AUTO 0.3 % (0.2-1.2); EOSINOPHILS ABSOLUTE AUTO 0.3 x10^3/uL (0.0-0.5); EOSINOPHILS PERCENT AUTO 2.1 % (0.0-4.0); HEMATOCRIT 33.8 % (33.0-47.0); HEMOGLOBIN 11.4 g/dL (12.0-16.0); IMMATURE GRAN ABSOLUTE AUTO 0.31 x10^3/uL (0.00-0.07); LYMPHOCYTES ABSOLUTE AUTO 4.7 x10^3/uL (1.0-4.8); LYMPHOCYTES PERCENT AUTO 35.3 % (25.0-50.0); MEAN CORPUSCULAR HEMOGLOBIN 31.1 pg (26.0-32.0); MEAN CORPUSCULAR HGB CONC 33.7 g/dL (32.0-36.0); MEAN CORPUSCULAR VOLUME 92.3 fL (78.0-93.0); MONOCYTES ABSOLUTE AUTO 0.8 x10^3/uL (0.0-0.8); MONOCYTES PERCENT AUTO 6.1 % (2.0-11.0); NEUTROPHILS ABSOLUTE AUTO 7.2 x10^3/uL (1.8-7.7); NEUTROPHILS PERCENT AUTO 53.9 % (50.0-80.0); PLATELET COUNT,PLT 338 x10^3/uL (130-400); RED BLOOD CELL COUNT 3.66 x10^6/uL (4.00-5.50); WHITE BLOOD CELL COUNT,WBC 13.3 x10^3/uL (4.0-10.0)
[2022-12-20 07:17] LABS: A/G RATIO 0.66; ALBUMIN 2.7 g/dL (3.4-5.0); BILIRUBIN TOTAL 0.3 mg/dL (0.2-1.0); CALCIUM 9.2 mg/dL (8.5-10.1); CREATININE 0.9 mg/dL (0.55-1.02); EST CRCL DRUG DOSING (CG) 67.45 mL/min; POTASSIUM,K 4.5 mmol/L (3.5-5.1); PROTEIN TOTAL,TP 6.8 g/dL (6.4-8.2)
[2022-12-20 07:18] LABS: ANION GAP 17.5 mmol/L (5-15)
[2022-12-20 07:19] LABS: C-REACTIVE PROTEIN 3.37 mg/dL (<=0.30)
[2022-12-20] MEDS: Gabapentin 300 MG Cap PO SCH ×3 (08:11→20:26)
[2022-12-20] MEDS: Metoprolol Tartrate 25 MG Tab PO SCH ×2 (08:12→20:26)
[2022-12-20] MEDS: Enoxaparin 40 MG/0.4 ML Syringe SUBCUT SCH (08:12)
[2022-12-20] MEDS: Topiramate 25 MG Tab PO SCH ×2 (08:13→20:26)
[2022-12-20] MEDS ORDERED: Sodium Chloride 0.9% 10 ML Syringe FLUSH PRN (08:28)
[2022-12-20] MEDS: Insulin Glarg,Human.Rec.Analog 100 Unit/ML 10 ML Vial SUBCUT SCH ×2 (08:50→20:25)
[2022-12-20] MEDS: Insulin Lispro 100 Units/ML 3 ML Vial SUBCUT SCH ×3 (08:51→17:46)
[2022-12-20] MEDS: Hydrocortisone Sodium Succinate 100 MG/2 ML SDV IVPUSH SCH (08:53)
[2022-12-20] MEDS: Amoxicillin/Clavulanate K 875-125 MG Tab PO SCH ×2 (08:54→20:26)
[2022-12-20] MEDS ORDERED: Iopamidol 612 MG/ML 30 ML SDV IVPUSH ONE (11:50)
[2022-12-20] MEDS: Simethicone 80 MG Tab.Chew PO SCH ×3 (12:42→22:08)
[2022-12-20] MEDS: HYDROmorphone 2 MG Tab PO PRN ×3 (13:39→23:46)
[2022-12-20] MEDS: Hydrocortisone 20 MG Tab PO SCH (17:45)
[2022-12-20] MEDS: Melatonin 3 MG Tab PO SCH (20:26)
[2022-12-20] MEDS: hydrOXYzine HCl 25 MG Tab PO SCH (20:27)
[2022-12-21] MEDS: Metoclopramide 10 MG/2 ML SDV IVPUSH SCH ×2 (05:12→08:38)
[2022-12-21] MEDS: Acetaminophen 325 MG Tab PO PRN (06:40)
[2022-12-21] MEDS: HYDROmorphone 2 MG Tab PO PRN (06:40)
[2022-12-21] MEDS: Simethicone 80 MG Tab.Chew PO SCH (06:41)
[2022-12-21] MEDS: Levothyroxine 125 MCG Tab PO SCH (06:41)
[2022-12-21] MEDS: Gemfibrozil 600 MG Tab PO SCH (06:41)
[2022-12-21 06:54] LABS: BASOPHILS ABSOLUTE AUTO 0.1 x10^3/uL (0.0-0.2); BASOPHILS PERCENT AUTO 0.4 % (0.2-1.2); EOSINOPHILS ABSOLUTE AUTO 0.3 x10^3/uL (0.0-0.5); EOSINOPHILS PERCENT AUTO 2.3 % (0.0-4.0); HEMATOCRIT 34.5 % (33.0-47.0); HEMOGLOBIN 11.6 g/dL (12.0-16.0); IMMATURE GRAN ABSOLUTE AUTO 0.47 x10^3/uL (0.00-0.07); LYMPHOCYTES ABSOLUTE AUTO 3.8 x10^3/uL (1.0-4.8); LYMPHOCYTES PERCENT AUTO 29.6 % (25.0-50.0); MEAN CORPUSCULAR HEMOGLOBIN 30.8 pg (26.0-32.0); MEAN CORPUSCULAR HGB CONC 33.6 g/dL (32.0-36.0); MEAN CORPUSCULAR VOLUME 91.5 fL (78.0-93.0); MONOCYTES ABSOLUTE AUTO 0.8 x10^3/uL (0.0-0.8); MONOCYTES PERCENT AUTO 6.2 % (2.0-11.0); NEUTROPHILS ABSOLUTE AUTO 7.5 x10^3/uL (1.8-7.7); NEUTROPHILS PERCENT AUTO 57.9 % (50.0-80.0); PLATELET COUNT,PLT 371 x10^3/uL (130-400); RED BLOOD CELL COUNT 3.77 x10^6/uL (4.00-5.50); WHITE BLOOD CELL COUNT,WBC 12.9 x10^3/uL (4.0-10.0)
[2022-12-21 07:17] LABS: POTASSIUM,K 4.4 mmol/L (3.5-5.1)
[2022-12-21 07:18] LABS: A/G RATIO 0.64; ALBUMIN 2.7 g/dL (3.4-5.0); ANION GAP 17.4 mmol/L (5-15); BILIRUBIN TOTAL 0.3 mg/dL (0.2-1.0); CALCIUM 9.1 mg/dL (8.5-10.1); CREATININE 0.8 mg/dL (0.55-1.02); EST CRCL DRUG DOSING (CG) 75.88 mL/min; PROTEIN TOTAL,TP 6.9 g/dL (6.4-8.2)
[2022-12-21] MEDS: Insulin Lispro 100 Units/ML 3 ML Vial SUBCUT SCH (08:33)
[2022-12-21] MEDS: Insulin Glarg,Human.Rec.Analog 100 Unit/ML 10 ML Vial SUBCUT SCH (08:34)
[2022-12-21] MEDS: Enoxaparin 40 MG/0.4 ML Syringe SUBCUT SCH (08:36)
[2022-12-21] MEDS: Gabapentin 300 MG Cap PO SCH (08:39)
[2022-12-21] MEDS: Topiramate 25 MG Tab PO SCH (08:40)
[2022-12-21] MEDS: Hydrocortisone 20 MG Tab PO SCH (08:40)
[2022-12-21] MEDS: Metoprolol Tartrate 25 MG Tab PO SCH (08:41)
[2022-12-21] MEDS ORDERED: Metoclopramide 10 MG Tab PO SCH (11:00)
== END 2022-12-21 11:00 | DRG 439 ==
LOC: VM.ED 12:22 → VM.MS 15:20
PROVIDERS: ADMIT Internal Medicine; ATTEND Family Medicine
DX: K85.30 Drug induced acute pancreatitis without necrosis or infection (principal); E23.0 Hypopituitarism; E87.1 Hypo-osmolality and hyponatremia; N17.9 Acute kidney failure, unspecified; N39.0 Urinary tract infection, site not specified; E27.49 Other adrenocortical insufficiency; E78.1 Pure hyperglyceridemia; E11.65 Type 2 diabetes mellitus with hyperglycemia; G40.909 Epilepsy, unspecified, not intractable, without status epilepticus; G62.9 Polyneuropathy, unspecified; F31.9 Bipolar disorder, unspecified; E66.9 Obesity, unspecified; M81.0 Age-related osteoporosis without current pathological fracture; B96.1 Klebsiella pneumoniae [K. pneumoniae] as the cause of diseases classified elsewhere; B18.2 Chronic viral hepatitis C; G72.89 Other specified myopathies; E03.9 Hypothyroidism, unspecified; F10.21 Alcohol dependence, in remission; G47.00 Insomnia, unspecified; N31.9 Neuromuscular dysfunction of bladder, unspecified; E78.5 Hyperlipidemia, unspecified; I10 Essential (primary) hypertension; F43.12 Post-traumatic stress disorder, chronic; E78.00 Pure hypercholesterolemia, unspecified; B96.20 Unspecified Escherichia coli [E. coli] as the cause of diseases classified elsewhere; F15.11 Other stimulant abuse, in remission; G89.29 Other chronic pain; K21.9 Gastro-esophageal reflux disease without esophagitis; F25.9 Schizoaffective disorder, unspecified; L89.302 Pressure ulcer of unspecified buttock, stage 2; Z79.890 Hormone replacement therapy; Z88.8 Allergy status to other drugs, medicaments and biological substances; Z79.4 Long term (current) use of insulin; Z86.16 Personal history of COVID-19; Z87.891 Personal history of nicotine dependence; Z68.32 Body mass index [BMI] 32.0-32.9, adult; Z90.49 Acquired absence of other specified parts of digestive tract; T50.995A Adverse effect of other drugs, medicaments and biological substances, initial encounter; Y92.89 Other specified places as the place of occurrence of the external cause
CPT/HCPCS: 36415; 74019; 74176; 74177; 80048; 80053; 80061; 81001; 81003; 82947; 82977; 83690; 83735; 85025; 85610; 86140; 87070; 87086; 87088; 87186; 96361; 96374; 99284; 99285-25; A9270-GY; C9113; J0696; J1170; J1650; J1720; J1815-GY; J2405; J2765; J3010; J7030; Q9967

== ENCOUNTER 2023-01-05 23:03 | Inpatient (IN) | payer MEDICAID ==
[2023-01-05] MEDS ORDERED: Ondansetron 4 MG/2 ML SDV IVPUSH ONE ×2 (23:10→23:48)
[2023-01-05 23:34] LABS: BASOPHILS ABSOLUTE AUTO 0.1 x10^3/uL (0.0-0.2); BASOPHILS PERCENT AUTO 0.3 % (0.2-1.2); EOSINOPHILS ABSOLUTE AUTO 0.3 x10^3/uL (0.0-0.5); EOSINOPHILS PERCENT AUTO 1.8 % (0.0-4.0); HEMATOCRIT 36.3 % (33.0-47.0); HEMOGLOBIN 12.2 g/dL (12.0-16.0); IMMATURE GRAN ABSOLUTE AUTO 0.49 x10^3/uL (0.00-0.07); LYMPHOCYTES ABSOLUTE AUTO 6.2 x10^3/uL (1.0-4.8); LYMPHOCYTES PERCENT AUTO 35.8 % (25.0-50.0); MEAN CORPUSCULAR HEMOGLOBIN 32.1 pg (26.0-32.0); MEAN CORPUSCULAR HGB CONC 33.6 g/dL (32.0-36.0); MEAN CORPUSCULAR VOLUME 95.5 fL (78.0-93.0); MONOCYTES ABSOLUTE AUTO 1.1 x10^3/uL (0.0-0.8); MONOCYTES PERCENT AUTO 6.6 % (2.0-11.0); NEUTROPHILS ABSOLUTE AUTO 9.1 x10^3/uL (1.8-7.7); NEUTROPHILS PERCENT AUTO 52.7 % (50.0-80.0); PLATELET COUNT,PLT 311 x10^3/uL (130-400)
[2023-01-05 23:41] LABS: WHITE BLOOD CELL COUNT,WBC 17.2 x10^3/uL (4.0-10.0)
[2023-01-05] MEDS ORDERED: Ondansetron 4 MG Tab.DIS PO ONE (23:42)
[2023-01-05] MEDS ORDERED: Sodium Chloride 0.9% 1,000 ML IV SCH (23:45)
[2023-01-05 23:55] LABS: A/G RATIO 0.64; ALANINE AMINOTRANSFERASE,ALT 67 U/L (14-59); ALKALINE PHOSPHATASE 428 U/L (46-116); ASPARTATE AMNIOTRANSFERASE,AST 50 U/L (15-37); BILIRUBIN TOTAL 0.5 mg/dL (0.2-1.0); BLOOD UREA NITROGEN,BUN 42 mg/dL (7-18); CALCIUM 9.9 mg/dL (8.5-10.1); CARBON DIOXIDE,CO2 25 mmol/L (21-32); CHLORIDE,CL 100 mmol/L (98-107); CREATININE 1.6 mg/dL (0.55-1.02); GLUCOSE RANDOM 340 mg/dL (70-99); POTASSIUM,K 4.6 mmol/L (3.5-5.1); PROTEIN TOTAL,TP 7.7 g/dL (6.4-8.2); SODIUM,NA 138 mmol/L (136-145)
[2023-01-05 23:56] LABS: ANION GAP 17.6 mmol/L (5-15); ESTIMATED GFR 40 mL/min (>=60); LIPASE 1172 U/L (19-71)
[2023-01-06] MEDS ORDERED: Naloxone 0.4 MG/ML SDV IVPUSH PRN
[2023-01-06] MEDS ORDERED: HYDROmorphone 0.5 MG/0.5 ML Syringe IVPUSH ONE
[2023-01-06] MEDS ORDERED: Ondansetron 4 MG/2 ML SDV IV PRN (01:47)
[2023-01-06] MEDS ORDERED: 50% Dextrose in Water 50 ML Syringe IVPUSH PRN (01:57)
[2023-01-06] MEDS ORDERED: Glucagon,Human Recombinant 1 MG Vial IM PRN (01:57)
[2023-01-06] MEDS ORDERED: Dextrose 5%-0.45% NaCl 1,000 ML IV SCH (02:00)
[2023-01-06] MEDS ORDERED: Dextrose 5%-0.9% NaCl with KCl 1,000 ML IV SCH (02:15)
[2023-01-06] MEDS ORDERED: Bisacodyl 10 MG Supp RECTAL PRN (02:18)
[2023-01-06] MEDS: HYDROmorphone 0.5 MG/0.5 ML Syringe IVPUSH PRN ×6 (02:41→23:33)
[2023-01-06] MEDS: Metoclopramide 10 MG/2 ML SDV IVPUSH SCH ×4 (02:41→19:44)
[2023-01-06] MEDS: Hydrocortisone Sodium Succinate 100 MG/2 ML SDV IVPUSH SCH ×3 (02:41→18:18)
[2023-01-06] MEDS: Pantoprazole 40 MG Vial IVPUSH SCH ×2 (02:42→20:03)
[2023-01-06 07:19] LABS: BASOPHILS ABSOLUTE AUTO 0.1 x10^3/uL (0.0-0.2); BASOPHILS PERCENT AUTO 0.4 % (0.2-1.2); EOSINOPHILS ABSOLUTE AUTO 0.2 x10^3/uL (0.0-0.5); EOSINOPHILS PERCENT AUTO 1.4 % (0.0-4.0); HEMATOCRIT 33.4 % (33.0-47.0); HEMOGLOBIN 10.7 g/dL (12.0-16.0); LYMPHOCYTES ABSOLUTE AUTO 2.9 x10^3/uL (1.0-4.8); LYMPHOCYTES PERCENT AUTO 25.9 % (25.0-50.0); MEAN CORPUSCULAR HEMOGLOBIN 31.3 pg (26.0-32.0); MEAN CORPUSCULAR VOLUME 97.7 fL (78.0-93.0); MONOCYTES ABSOLUTE AUTO 0.4 x10^3/uL (0.0-0.8); MONOCYTES PERCENT AUTO 3.5 % (2.0-11.0); NEUTROPHILS ABSOLUTE AUTO 7.4 x10^3/uL (1.8-7.7); NEUTROPHILS PERCENT AUTO 65.3 % (50.0-80.0); PLATELET COUNT,PLT 261 x10^3/uL (130-400); RED BLOOD CELL COUNT 3.42 x10^6/uL (4.00-5.50); WHITE BLOOD CELL COUNT,WBC 11.3 x10^3/uL (4.0-10.0)
[2023-01-06 07:49] LABS: A/G RATIO 0.62; ALANINE AMINOTRANSFERASE,ALT 67 U/L (14-59); ALBUMIN 2.6 g/dL (3.4-5.0); ALKALINE PHOSPHATASE 364 U/L (46-116); ASPARTATE AMNIOTRANSFERASE,AST 46 U/L (15-37); BILIRUBIN TOTAL 0.5 mg/dL (0.2-1.0); BLOOD UREA NITROGEN,BUN 38 mg/dL (7-18); C-REACTIVE PROTEIN 2.31 mg/dL (<=0.50); CARBON DIOXIDE,CO2 22 mmol/L (21-32); CHLORIDE,CL 104 mmol/L (98-107); CHOLESTEROL HDL 38 mg/dL (40-59); CHOLESTEROL TOTAL 406 mg/dL (0-199); CREATININE 1.5 mg/dL (0.55-1.02); EST CRCL DRUG DOSING (CG) 40.47 mL/min; MAGNESIUM 2.3 mg/dL (1.8-2.4); POTASSIUM,K 5.6 mmol/L (3.5-5.1); PROTEIN TOTAL,TP 6.8 g/dL (6.4-8.2); SODIUM,NA 136 mmol/L (136-145); TRIGLYCERIDES 556 mg/dL (0-149); TSH ULTRASENSITIVE 0.282 uIU/mL (0.358-3.74)
[2023-01-06 07:53] LABS: ANION GAP 15.6 mmol/L (5-15); ESTIMATED GFR 43 mL/min (>=60)
[2023-01-06 07:55] LABS: GLUCOSE RANDOM 444 mg/dL (70-99)
[2023-01-06 08:04] LABS: APPEARANCE,URINE CLOUDY (CLEAR); BILIRUBIN,URINE NEGATIVE (NEGATIVE); COLOR,URINE YELLOW (YELLOW); GLUCOSE,URINE 100 mg/dL (NEGATIVE); KETONES,URINE NEGATIVE (NEGATIVE); LEUKOCYTE ESTERASE,URINE MODERATE (NEGATIVE); NITRITE,URINE POSITIVE (NEGATIVE); OCCULT BLOOD,URINE NEGATIVE (NEGATIVE); PH,URINE 5.5 (5.0-8.0); PROTEIN,URINE NEGATIVE (NEGATIVE); UROBILINOGEN,URINE 0.2 EU/dL (0.2)
[2023-01-06] MEDS ORDERED: Piperacillin/Tazobactam 4.5 GM in Sodium Chloride 0.9% 100 ML IV ONE (08:30)
[2023-01-06 08:36] LABS: BACTERIA,URINE MANY /HPF (NOT SEEN); MUCUS,URINE NOT SEEN /LPF (NOT SEEN); RBC,URINE NOT SEEN /HPF (NOT SEEN); SQUAMOUS EPITHELIAL CELLS,UR RARE /HPF (NOT SEEN)
[2023-01-06] MEDS ORDERED: Insulin Glarg,Human.Rec.Analog 100 Unit/ML 10 ML Vial SUBCUT SCH (09:00)
[2023-01-06] MEDS: Insulin Lispro 100 Units/ML 3 ML Vial SUBCUT SCH ×4 (09:06→20:03)
[2023-01-06] MEDS: Insulin Glarg,Human.Rec.Analog 100 Unit/ML 10 ML Vial SUBCUT SCH ×2 (09:09→21:07)
[2023-01-06] MEDS: Furosemide 20 MG/2 ML VIAL IV SCH (09:25)
[2023-01-06] MEDS: Sodium Chloride 0.9% 3,000 ML IV ONE ×2 (10:03→14:40)
[2023-01-06] MEDS: Piperacillin/Tazobactam 3.375 GM in Sodium Chloride 0.9% 100 ML IV SCH ×2 (15:08→23:19)
[2023-01-06] MEDS: Enoxaparin 40 MG/0.4 ML Syringe SUBCUT SCH (19:43)
[2023-01-06] MEDS: Sodium Chloride 0.9% 1,000 ML IV SCH (23:19)
[2023-01-07] MEDS: Hydrocortisone Sodium Succinate 100 MG/2 ML SDV IVPUSH SCH ×2 (01:34→12:50)
[2023-01-07] MEDS: Metoclopramide 10 MG/2 ML SDV IVPUSH SCH ×4 (02:11→19:57)
[2023-01-07] MEDS: HYDROmorphone 0.5 MG/0.5 ML Syringe IVPUSH PRN ×4 (03:45→19:57)
[2023-01-07 05:06] LABS: IGA, SERUM 537 mg/dL (40-350); IGM, SERUM 117 mg/dL (50-300)
[2023-01-07] MEDS: Sodium Chloride 0.9% 1,000 ML IV SCH ×3 (06:20→22:03)
[2023-01-07] MEDS: Piperacillin/Tazobactam 3.375 GM in Sodium Chloride 0.9% 100 ML IV SCH ×3 (06:20→22:03)
[2023-01-07 08:47] LABS: BASOPHILS ABSOLUTE AUTO 0.1 x10^3/uL (0.0-0.2); BASOPHILS PERCENT AUTO 0.6 % (0.2-1.2); EOSINOPHILS ABSOLUTE AUTO 0.3 x10^3/uL (0.0-0.5); EOSINOPHILS PERCENT AUTO 3.4 % (0.0-4.0); HEMATOCRIT 32.4 % (33.0-47.0); HEMOGLOBIN 10.4 g/dL (12.0-16.0); LYMPHOCYTES ABSOLUTE AUTO 2.7 x10^3/uL (1.0-4.8); LYMPHOCYTES PERCENT AUTO 31.6 % (25.0-50.0); MEAN CORPUSCULAR HEMOGLOBIN 31.4 pg (26.0-32.0); MEAN CORPUSCULAR HGB CONC 32.1 g/dL (32.0-36.0); MEAN CORPUSCULAR VOLUME 97.9 fL (78.0-93.0); MONOCYTES ABSOLUTE AUTO 0.6 x10^3/uL (0.0-0.8); MONOCYTES PERCENT AUTO 6.6 % (2.0-11.0); NEUTROPHILS ABSOLUTE AUTO 4.7 x10^3/uL (1.8-7.7); NEUTROPHILS PERCENT AUTO 55.5 % (50.0-80.0); PLATELET COUNT,PLT 243 x10^3/uL (130-400); RED BLOOD CELL COUNT 3.31 x10^6/uL (4.00-5.50); WHITE BLOOD CELL COUNT,WBC 8.5 x10^3/uL (4.0-10.0)
[2023-01-07 09:08] LABS: A/G RATIO 0.59; ALBUMIN 2.3 g/dL (3.4-5.0); ANION GAP 15.7 mmol/L (5-15); BILIRUBIN TOTAL 0.5 mg/dL (0.2-1.0); CALCIUM 8.4 mg/dL (8.5-10.1); CREATININE 1.3 mg/dL (0.55-1.02); EST CRCL DRUG DOSING (CG) 46.69 mL/min; POTASSIUM,K 3.7 mmol/L (3.5-5.1); PROTEIN TOTAL,TP 6.2 g/dL (6.4-8.2)
[2023-01-07] MEDS: Furosemide 20 MG/2 ML VIAL IV SCH (09:53)
[2023-01-07] MEDS: Pantoprazole 40 MG Vial IVPUSH SCH ×2 (09:55→21:32)
[2023-01-07] MEDS: Insulin Glarg,Human.Rec.Analog 100 Unit/ML 10 ML Vial SUBCUT SCH ×2 (09:57→22:09)
[2023-01-07] MEDS: Insulin Lispro 100 Units/ML 3 ML Vial SUBCUT SCH ×4 (10:07→21:22)
[2023-01-07] MEDS: Enoxaparin 40 MG/0.4 ML Syringe SUBCUT SCH (19:56)
[2023-01-08] MEDS: HYDROmorphone 0.5 MG/0.5 ML Syringe IVPUSH PRN ×6 (00:29→22:55)
[2023-01-08] MEDS: Metoclopramide 10 MG/2 ML SDV IVPUSH SCH ×4 (02:58→20:38)
[2023-01-08] MEDS: Sodium Chloride 0.9% 1,000 ML IV SCH ×2 (05:09→18:30)
[2023-01-08] MEDS: Piperacillin/Tazobactam 3.375 GM in Sodium Chloride 0.9% 100 ML IV SCH ×3 (06:03→22:55)
[2023-01-08 08:38] LABS: BASOPHILS ABSOLUTE AUTO 0.1 x10^3/uL (0.0-0.2); BASOPHILS PERCENT AUTO 0.6 % (0.2-1.2); EOSINOPHILS ABSOLUTE AUTO 0.5 x10^3/uL (0.0-0.5); EOSINOPHILS PERCENT AUTO 4.6 % (0.0-4.0); HEMATOCRIT 32.9 % (33.0-47.0); HEMOGLOBIN 10.6 g/dL (12.0-16.0); IMMATURE GRAN ABSOLUTE AUTO 0.18 x10^3/uL (0.00-0.07); LYMPHOCYTES ABSOLUTE AUTO 3.6 x10^3/uL (1.0-4.8); LYMPHOCYTES PERCENT AUTO 35.1 % (25.0-50.0); MEAN CORPUSCULAR HEMOGLOBIN 31.4 pg (26.0-32.0); MEAN CORPUSCULAR HGB CONC 32.2 g/dL (32.0-36.0); MEAN CORPUSCULAR VOLUME 97.3 fL (78.0-93.0); MONOCYTES ABSOLUTE AUTO 0.7 x10^3/uL (0.0-0.8); MONOCYTES PERCENT AUTO 6.7 % (2.0-11.0); NEUTROPHILS ABSOLUTE AUTO 5.3 x10^3/uL (1.8-7.7); NEUTROPHILS PERCENT AUTO 51.3 % (50.0-80.0); PLATELET COUNT,PLT 255 x10^3/uL (130-400); RED BLOOD CELL COUNT 3.38 x10^6/uL (4.00-5.50); WHITE BLOOD CELL COUNT,WBC 10.4 x10^3/uL (4.0-10.0)
[2023-01-08 09:00] LABS: A/G RATIO 0.6; ALBUMIN 2.1 g/dL (3.4-5.0); BILIRUBIN TOTAL 0.5 mg/dL (0.2-1.0); CALCIUM 8.3 mg/dL (8.5-10.1); CREATININE 1.1 mg/dL (0.55-1.02); EST CRCL DRUG DOSING (CG) 55.18 mL/min; POTASSIUM,K 3.2 mmol/L (3.5-5.1); PROTEIN TOTAL,TP 5.6 g/dL (6.4-8.2)
[2023-01-08 09:06] LABS: ANION GAP 13.2 mmol/L (5-15)
[2023-01-08] MEDS: Pantoprazole 40 MG Vial IVPUSH SCH (09:10)
[2023-01-08] MEDS: Furosemide 20 MG/2 ML VIAL IV SCH (09:12)
[2023-01-08] MEDS: Insulin Glarg,Human.Rec.Analog 100 Unit/ML 10 ML Vial SUBCUT SCH ×2 (09:16→20:45)
[2023-01-08] MEDS: Insulin Lispro 100 Units/ML 3 ML Vial SUBCUT SCH ×4 (09:17→20:43)
[2023-01-08] MEDS: Gabapentin 300 MG Cap PO SCH ×2 (12:23→20:39)
[2023-01-08] MEDS: Losartan 50 MG Tab PO SCH (12:32)
[2023-01-08] MEDS: Topiramate 25 MG Tab PO SCH ×2 (12:32→20:39)
[2023-01-08] MEDS: Folic Acid 1 MG Tab PO SCH (12:33)
[2023-01-08] MEDS: Hydrocortisone 20 MG Tab PO SCH (17:22)
[2023-01-08] MEDS: Gemfibrozil 600 MG Tab PO SCH (17:22)
[2023-01-08] MEDS: hydrOXYzine HCl 25 MG Tab PO SCH (20:38)
[2023-01-08] MEDS: Enoxaparin 40 MG/0.4 ML Syringe SUBCUT SCH (20:38)
[2023-01-08] MEDS: QUEtiapine 100 MG Tab PO SCH (20:39)
[2023-01-08] MEDS: Metoprolol Tartrate 25 MG Tab PO SCH (20:39)
[2023-01-08] MEDS: traZODone 50 MG Tab PO SCH (20:39)
[2023-01-09] MEDS: Metoclopramide 10 MG/2 ML SDV IVPUSH SCH ×4 (02:43→20:34)
[2023-01-09] MEDS: Sodium Chloride 0.9% 1,000 ML IV SCH (03:10)
[2023-01-09] MEDS: HYDROmorphone 0.5 MG/0.5 ML Syringe IVPUSH PRN ×2 (03:13→13:46)
[2023-01-09] MEDS: Pantoprazole 40 MG Tab.CR PO SCH (06:10)
[2023-01-09] MEDS: Piperacillin/Tazobactam 3.375 GM in Sodium Chloride 0.9% 100 ML IV SCH ×3 (06:10→21:59)
[2023-01-09] MEDS: Gemfibrozil 600 MG Tab PO SCH ×2 (06:10→17:34)
[2023-01-09] MEDS ORDERED: Levothyroxine 125 MCG Tab PO SCH (07:00)
[2023-01-09 07:03] LABS: BASOPHILS ABSOLUTE AUTO 0.1 x10^3/uL (0.0-0.2); BASOPHILS PERCENT AUTO 0.5 % (0.2-1.2); EOSINOPHILS ABSOLUTE AUTO 0.3 x10^3/uL (0.0-0.5); EOSINOPHILS PERCENT AUTO 3.1 % (0.0-4.0); HEMATOCRIT 29.5 % (33.0-47.0); HEMOGLOBIN 9.6 g/dL (12.0-16.0); IMMATURE GRAN ABSOLUTE AUTO 0.11 x10^3/uL (0.00-0.07); LYMPHOCYTES ABSOLUTE AUTO 3.7 x10^3/uL (1.0-4.8); LYMPHOCYTES PERCENT AUTO 36.6 % (25.0-50.0); MEAN CORPUSCULAR HEMOGLOBIN 31.9 pg (26.0-32.0); MEAN CORPUSCULAR HGB CONC 32.5 g/dL (32.0-36.0); MONOCYTES ABSOLUTE AUTO 0.5 x10^3/uL (0.0-0.8); NEUTROPHILS ABSOLUTE AUTO 5.5 x10^3/uL (1.8-7.7); NEUTROPHILS PERCENT AUTO 53.7 % (50.0-80.0); PLATELET COUNT,PLT 239 x10^3/uL (130-400); RED BLOOD CELL COUNT 3.01 x10^6/uL (4.00-5.50); WHITE BLOOD CELL COUNT,WBC 10.2 x10^3/uL (4.0-10.0)
[2023-01-09 07:49] LABS: A/G RATIO 0.56; BILIRUBIN TOTAL 0.5 mg/dL (0.2-1.0); CALCIUM 8.3 mg/dL (8.5-10.1); CREATININE 1.4 mg/dL (0.55-1.02); EST CRCL DRUG DOSING (CG) 43.36 mL/min; PROTEIN TOTAL,TP 5.6 g/dL (6.4-8.2)
[2023-01-09] MEDS: Insulin Lispro 100 Units/ML 3 ML Vial SUBCUT SCH ×4 (08:15→20:50)
[2023-01-09] MEDS: Insulin Glarg,Human.Rec.Analog 100 Unit/ML 10 ML Vial SUBCUT SCH ×2 (08:15→21:53)
[2023-01-09] MEDS: Hydrocortisone 20 MG Tab PO SCH ×2 (08:17→17:34)
[2023-01-09] MEDS: Topiramate 25 MG Tab PO SCH ×2 (08:17→20:34)
[2023-01-09] MEDS: Folic Acid 1 MG Tab PO SCH (08:17)
[2023-01-09] MEDS: Furosemide 20 MG Tab PO SCH (08:17)
[2023-01-09] MEDS: Magnesium Oxide 400 MG Tab PO SCH (08:17)
[2023-01-09] MEDS: Gabapentin 300 MG Cap PO SCH ×3 (08:17→20:35)
[2023-01-09] MEDS: Cyanocobalamin (Vitamin B12) 1,000 MCG Tab PO SCH (08:17)
[2023-01-09] MEDS: Losartan 50 MG Tab PO SCH (08:18)
[2023-01-09] MEDS: Metoprolol Tartrate 25 MG Tab PO SCH ×2 (08:18→20:35)
[2023-01-09] MEDS ORDERED: Docusate Sodium 100 MG Cap PO PRN (12:00)
[2023-01-09] MEDS: Enoxaparin 40 MG/0.4 ML Syringe SUBCUT SCH (20:18)
[2023-01-09] MEDS: traZODone 50 MG Tab PO SCH (20:34)
[2023-01-09] MEDS: QUEtiapine 100 MG Tab PO SCH (20:34)
[2023-01-09] MEDS: hydrOXYzine HCl 25 MG Tab PO SCH (20:34)
[2023-01-09] MEDS ORDERED: Non-Formulary Medication 1 Each PO SCH (21:00)
[2023-01-10] MEDS: HYDROmorphone 0.5 MG/0.5 ML Syringe IVPUSH PRN ×2 (00:33→05:38)
[2023-01-10] MEDS: Metoclopramide 10 MG/2 ML SDV IVPUSH SCH ×4 (01:38→20:25)
[2023-01-10] MEDS: Gemfibrozil 600 MG Tab PO SCH ×2 (06:01→17:15)
[2023-01-10] MEDS: Piperacillin/Tazobactam 3.375 GM in Sodium Chloride 0.9% 100 ML IV SCH ×3 (06:01→22:05)
[2023-01-10] MEDS: Pantoprazole 40 MG Tab.CR PO SCH (06:01)
[2023-01-10 06:49] LABS: BASOPHILS ABSOLUTE AUTO 0.1 x10^3/uL (0.0-0.2); BASOPHILS PERCENT AUTO 0.5 % (0.2-1.2); EOSINOPHILS ABSOLUTE AUTO 0.3 x10^3/uL (0.0-0.5); EOSINOPHILS PERCENT AUTO 3.2 % (0.0-4.0); HEMATOCRIT 29.3 % (33.0-47.0); HEMOGLOBIN 9.5 g/dL (12.0-16.0); IMMATURE GRAN ABSOLUTE AUTO 0.11 x10^3/uL (0.00-0.07); LYMPHOCYTES ABSOLUTE AUTO 3.1 x10^3/uL (1.0-4.8); LYMPHOCYTES PERCENT AUTO 32.4 % (25.0-50.0); MEAN CORPUSCULAR HEMOGLOBIN 31.6 pg (26.0-32.0); MEAN CORPUSCULAR HGB CONC 32.4 g/dL (32.0-36.0); MEAN CORPUSCULAR VOLUME 97.3 fL (78.0-93.0); MONOCYTES ABSOLUTE AUTO 0.5 x10^3/uL (0.0-0.8); NEUTROPHILS ABSOLUTE AUTO 5.5 x10^3/uL (1.8-7.7); NEUTROPHILS PERCENT AUTO 57.7 % (50.0-80.0); PLATELET COUNT,PLT 224 x10^3/uL (130-400); RED BLOOD CELL COUNT 3.01 x10^6/uL (4.00-5.50); WHITE BLOOD CELL COUNT,WBC 9.5 x10^3/uL (4.0-10.0)
[2023-01-10 07:17] LABS: A/G RATIO 0.57; BILIRUBIN TOTAL 0.3 mg/dL (0.2-1.0); CALCIUM 8.5 mg/dL (8.5-10.1); CREATININE 1.3 mg/dL (0.55-1.02); EST CRCL DRUG DOSING (CG) 46.69 mL/min; POTASSIUM,K 4.2 mmol/L (3.5-5.1); PROTEIN TOTAL,TP 5.5 g/dL (6.4-8.2)
[2023-01-10 07:20] LABS: ANION GAP 14.2 mmol/L (5-15)
[2023-01-10] MEDS: Folic Acid 1 MG Tab PO SCH (08:31)
[2023-01-10] MEDS: Losartan 50 MG Tab PO SCH (08:31)
[2023-01-10] MEDS: Magnesium Oxide 400 MG Tab PO SCH (08:31)
[2023-01-10] MEDS: Topiramate 25 MG Tab PO SCH ×2 (08:32→20:30)
[2023-01-10] MEDS: Furosemide 20 MG Tab PO SCH (08:32)
[2023-01-10] MEDS: Gabapentin 300 MG Cap PO SCH ×3 (08:33→20:30)
[2023-01-10] MEDS: Metoprolol Tartrate 25 MG Tab PO SCH ×2 (08:33→20:30)
[2023-01-10] MEDS: Cyanocobalamin (Vitamin B12) 1,000 MCG Tab PO SCH (08:34)
[2023-01-10] MEDS: Hydrocortisone 20 MG Tab PO SCH ×2 (08:34→17:16)
[2023-01-10] MEDS: Insulin Glarg,Human.Rec.Analog 100 Unit/ML 10 ML Vial SUBCUT SCH ×2 (08:35→21:59)
[2023-01-10] MEDS: Insulin Lispro 100 Units/ML 3 ML Vial SUBCUT SCH ×4 (08:37→22:00)
[2023-01-10] MEDS: Acetaminophen/HYDROcodone 325-5 MG Tab PO PRN ×2 (10:25→17:15)
[2023-01-10] MEDS: Enoxaparin 40 MG/0.4 ML Syringe SUBCUT SCH (19:55)
[2023-01-10] MEDS: QUEtiapine 100 MG Tab PO SCH (20:30)
[2023-01-10] MEDS: hydrOXYzine HCl 25 MG Tab PO SCH (20:30)
[2023-01-10] MEDS: traZODone 50 MG Tab PO SCH (20:30)
[2023-01-11] MEDS: Acetaminophen/HYDROcodone 325-5 MG Tab PO PRN (01:29)
[2023-01-11] MEDS: Metoclopramide 10 MG/2 ML SDV IVPUSH SCH ×2 (01:30→08:28)
[2023-01-11] MEDS: Gemfibrozil 600 MG Tab PO SCH (06:01)
[2023-01-11] MEDS: Piperacillin/Tazobactam 3.375 GM in Sodium Chloride 0.9% 100 ML IV SCH (06:01)
[2023-01-11] MEDS: Pantoprazole 40 MG Tab.CR PO SCH (06:01)
[2023-01-11 07:26] LABS: CALCIUM 8.4 mg/dL (8.5-10.1); CREATININE 1.2 mg/dL (0.55-1.02); EST CRCL DRUG DOSING (CG) 50.58 mL/min
[2023-01-11] MEDS: Gabapentin 300 MG Cap PO SCH ×2 (08:22→12:02)
[2023-01-11] MEDS: Cyanocobalamin (Vitamin B12) 1,000 MCG Tab PO SCH (08:22)
[2023-01-11] MEDS: Furosemide 20 MG Tab PO SCH (08:22)
[2023-01-11] MEDS: Losartan 50 MG Tab PO SCH (08:26)
[2023-01-11] MEDS: Folic Acid 1 MG Tab PO SCH (08:27)
[2023-01-11] MEDS: Metoprolol Tartrate 25 MG Tab PO SCH (08:27)
[2023-01-11] MEDS: Topiramate 25 MG Tab PO SCH (08:27)
[2023-01-11] MEDS: Magnesium Oxide 400 MG Tab PO SCH (08:27)
[2023-01-11] MEDS: Hydrocortisone 20 MG Tab PO SCH (08:28)
[2023-01-11] MEDS: Insulin Lispro 100 Units/ML 3 ML Vial SUBCUT SCH ×2 (08:33→12:03)
[2023-01-11] MEDS: Insulin Glarg,Human.Rec.Analog 100 Unit/ML 10 ML Vial SUBCUT SCH (08:35)
[2023-01-11 12:12] LABS: ANA DIRECT Negative (Negative); IMMUNOGLOBULIN G, QN, SERUM 750 mg/dL (586-1602)
== END 2023-01-11 14:25 | DRG 439 ==
LOC: VM.ED 23:03 → VM.MS 01-06 01:36
PROVIDERS: ADMIT Family Medicine; ATTEND Family Medicine
PROC: 0DH67UZ Insertion of Feeding Device into Stomach, Via Natural or Artificial Opening (ICD-10-PCS; principal; 2023-01-06)
DX: K85.90 Acute pancreatitis without necrosis or infection, unspecified (principal); F33.9 Major depressive disorder, recurrent, unspecified; N39.0 Urinary tract infection, site not specified; Z68.41 Body mass index [BMI] 40.0-44.9, adult; E66.01 Morbid (severe) obesity due to excess calories; I10 Essential (primary) hypertension; E66.9 Obesity, unspecified; N31.9 Neuromuscular dysfunction of bladder, unspecified; K21.9 Gastro-esophageal reflux disease without esophagitis; G47.00 Insomnia, unspecified; F31.9 Bipolar disorder, unspecified; E53.8 Deficiency of other specified B group vitamins; F43.12 Post-traumatic stress disorder, chronic; F90.9 Attention-deficit hyperactivity disorder, unspecified type; F98.8 Other specified behavioral and emotional disorders with onset usually occurring in childhood and adolescence; F15.10 Other stimulant abuse, uncomplicated; E11.65 Type 2 diabetes mellitus with hyperglycemia; F43.10 Post-traumatic stress disorder, unspecified; E11.40 Type 2 diabetes mellitus with diabetic neuropathy, unspecified; E78.00 Pure hypercholesterolemia, unspecified; F25.9 Schizoaffective disorder, unspecified; M81.0 Age-related osteoporosis without current pathological fracture; G89.4 Chronic pain syndrome; B18.2 Chronic viral hepatitis C; E03.9 Hypothyroidism, unspecified; Z79.890 Hormone replacement therapy; Z79.4 Long term (current) use of insulin; Z88.8 Allergy status to other drugs, medicaments and biological substances; Z79.899 Other long term (current) drug therapy; Z91.81 History of falling; Z90.49 Acquired absence of other specified parts of digestive tract; Z79.52 Long term (current) use of systemic steroids; Z86.16 Personal history of COVID-19
CPT/HCPCS: 36415; 74176; 80053; 83605; 83690; 84484; 85025; 96374; 96375; 99284; 99285; J1170; J2405; J7030; 71045; 71250; 80048; 80061; 81001; 81025; 82784; 82787; 82947; 83735; 84145; 84443; 85652; 86038; 86140; 87070; 87086; 87088; 87186; A9270-GY; C9113; J1650; J1720; J1815-GY; J1940; J2543; J2765; J3480; J3490

== ENCOUNTER 2023-01-16 07:54 | Emergency (ER) | payer MEDICAID ==
[2023-01-16] MEDS ORDERED: HYDROmorphone 0.5 MG/0.5 ML Syringe IVPUSH ONE ×2 (07:59→10:29)
[2023-01-16 08:13] LABS: BASOPHILS ABSOLUTE AUTO 0.1 x10^3/uL (0.0-0.2); BASOPHILS PERCENT AUTO 0.5 % (0.2-1.2); EOSINOPHILS ABSOLUTE AUTO 0.4 x10^3/uL (0.0-0.5); HEMATOCRIT 35.7 % (33.0-47.0); HEMOGLOBIN 11.6 g/dL (12.0-16.0); IMMATURE GRAN ABSOLUTE AUTO 0.42 x10^3/uL (0.00-0.07); LYMPHOCYTES ABSOLUTE AUTO 4.5 x10^3/uL (1.0-4.8); MEAN CORPUSCULAR HEMOGLOBIN 30.9 pg (26.0-32.0); MEAN CORPUSCULAR HGB CONC 32.5 g/dL (32.0-36.0); MEAN CORPUSCULAR VOLUME 94.9 fL (78.0-93.0); MONOCYTES ABSOLUTE AUTO 0.8 x10^3/uL (0.0-0.8); MONOCYTES PERCENT AUTO 5.6 % (2.0-11.0); NEUTROPHILS ABSOLUTE AUTO 8.2 x10^3/uL (1.8-7.7); PLATELET COUNT,PLT 306 x10^3/uL (130-400); RED BLOOD CELL COUNT 3.76 x10^6/uL (4.00-5.50); WHITE BLOOD CELL COUNT,WBC 14.3 x10^3/uL (4.0-10.0)
[2023-01-16] MEDS ORDERED: Iopamidol 612 MG/ML 100 ML Bottle IVPUSH ONE (08:18)
[2023-01-16 08:40] LABS: A/G RATIO 0.63; ALANINE AMINOTRANSFERASE,ALT 60 U/L (14-59); ALBUMIN 2.7 g/dL (3.4-5.0); ALKALINE PHOSPHATASE 304 U/L (46-116); AMYLASE 47 U/L (25-115); ANION GAP 13.8 mmol/L (5-15); ASPARTATE AMNIOTRANSFERASE,AST 55 U/L (15-37); BILIRUBIN TOTAL 0.5 mg/dL (0.2-1.0); BLOOD UREA NITROGEN,BUN 23 mg/dL (7-18); CALCIUM 9.7 mg/dL (8.5-10.1); CARBON DIOXIDE,CO2 24 mmol/L (21-32); CHLORIDE,CL 102 mmol/L (98-107); CREATININE 1.1 mg/dL (0.55-1.02); ESTIMATED GFR 63 mL/min (>=60); GLUCOSE RANDOM 330 mg/dL (70-99); POTASSIUM,K 4.8 mmol/L (3.5-5.1); SODIUM,NA 135 mmol/L (136-145)
[2023-01-16 08:52] LABS: LIPASE 442 U/L (19-71)
[2023-01-16] MEDS ORDERED: Sodium Chloride 0.9% 1,000 ML IV SCH (10:30)
[2023-01-16] MEDS ORDERED: Sodium Chloride 0.9% 1,000 ML IV ONE (11:39)
== END 2023-01-16 12:44 ==
LOC: VM.ED 07:54
DX: K85.90 Acute pancreatitis without necrosis or infection, unspecified (principal); I10 Essential (primary) hypertension; K21.9 Gastro-esophageal reflux disease without esophagitis; E11.9 Type 2 diabetes mellitus without complications; E03.9 Hypothyroidism, unspecified; E78.00 Pure hypercholesterolemia, unspecified; E66.9 Obesity, unspecified; Z88.6 Allergy status to analgesic agent; Z88.8 Allergy status to other drugs, medicaments and biological substances; Z79.899 Other long term (current) drug therapy; Z79.2 Long term (current) use of antibiotics; Z86.16 Personal history of COVID-19; Z90.49 Acquired absence of other specified parts of digestive tract
CPT/HCPCS: 36415; 74177; 80053; 82150; 83605; 83690; 85025; 96361; 96374; 96376; 99284; 99285-25; J1170; J7030; Q9967

== ENCOUNTER 2023-02-24 19:32 | Emergency (ER) | payer MEDICAID ==
[2023-02-24] MEDS ORDERED: Naloxone 0.4 MG/ML SDV IVPUSH PRN (20:02)
[2023-02-24 20:08] LABS: HEMATOCRIT 36.4 % (33.0-47.0); HEMOGLOBIN 12.1 g/dL (12.0-16.0); MEAN CORPUSCULAR HEMOGLOBIN 32.1 pg (26.0-32.0); MEAN CORPUSCULAR HGB CONC 33.2 g/dL (32.0-36.0); MEAN CORPUSCULAR VOLUME 96.6 fL (78.0-93.0); PLATELET COUNT,PLT 375 x10^3/uL (130-400); RED BLOOD CELL COUNT 3.77 x10^6/uL (4.00-5.50); WHITE BLOOD CELL COUNT,WBC 14.7 x10^3/uL (4.0-10.0)
[2023-02-24] MEDS: Sodium Chloride 0.9% 1,000 ML IV ONE ×2 (20:11→20:51)
[2023-02-24] MEDS: HYDROmorphone 0.5 MG/0.5 ML Syringe IVPUSH ONE ×2 (20:12→22:10)
[2023-02-24] MEDS: Ondansetron 4 MG/2 ML SDV IVPUSH ONE (20:12)
[2023-02-24 20:16] LABS: BAND PERCENT MAN 6 % (0-6); EOSINOPHILS ABSOLUTE MAN 0.3 x10^3/uL (0.0-0.5); EOSINOPHILS PERCENT MAN 2 % (0-4); LYMPHOCYTES ABSOLUTE MAN 4.6 x10^3/uL (1.0-4.8); LYMPHOCYTES PERCENT MAN 31 % (25-50); METAMYELOCYTE PERCENT MAN 3 % (0); MONOCYTES PERCENT MAN 7 % (2-11); NEUTROPHILS ABSOLUTE MAN 8.4 x10^3/uL (1.8-7.7); PLATELET COUNT ESTIMATE ADEQUATE; SEG NEUTROPHILS PERCENT MAN 51 % (50-80)
[2023-02-24 20:21] LABS: A/G RATIO 0.57; ALBUMIN 2.7 g/dL (3.4-5.0); ALKALINE PHOSPHATASE 377 U/L (46-116); BILIRUBIN TOTAL 0.6 mg/dL (0.2-1.0); BLOOD UREA NITROGEN,BUN 38 mg/dL (7-18); C-REACTIVE PROTEIN 2.18 mg/dL (<=0.50); CARBON DIOXIDE,CO2 22 mmol/L (21-32); CHLORIDE,CL 106 mmol/L (98-107); CREATININE 1.5 mg/dL (0.55-1.02); GLUCOSE RANDOM 218 mg/dL (70-99); POTASSIUM,K 5.3 mmol/L (3.5-5.1); PROTEIN TOTAL,TP 7.4 g/dL (6.4-8.2); SODIUM,NA 141 mmol/L (136-145)
[2023-02-24 20:31] LABS: ANION GAP 18.3 mmol/L (5-15); ESTIMATED GFR 43 mL/min (>=60)
[2023-02-24 20:32] LABS: LIPASE 274 U/L (19-71)
[2023-02-24 20:59] LABS: ALANINE AMINOTRANSFERASE,ALT 66 U/L (14-59); ASPARTATE AMNIOTRANSFERASE,AST 70 U/L (15-37)
== END 2023-02-24 22:15 | disposition home or self-care (01) ==
LOC: VM.ED 19:32
DX: K85.90 Acute pancreatitis without necrosis or infection, unspecified (principal); I10 Essential (primary) hypertension; K21.9 Gastro-esophageal reflux disease without esophagitis; Z86.16 Personal history of COVID-19; E11.9 Type 2 diabetes mellitus without complications; E66.9 Obesity, unspecified; Z88.6 Allergy status to analgesic agent
CPT/HCPCS: 80053; 83690; 85025; 86140; 96374; 96375; 96376; 99284-25; J1170; J2405; J7030

== ENCOUNTER 2023-03-29 10:35 | Observation (INO) | payer MEDICAID ==
[2023-03-29] MEDS ORDERED: Sodium Chloride 0.9% 10 ML Syringe FLUSH PRN (10:36)
[2023-03-29 10:50] LABS: BASOPHILS ABSOLUTE AUTO 0.1 x10^3/uL (0.0-0.2); BASOPHILS PERCENT AUTO 0.5 % (0.2-1.2); EOSINOPHILS ABSOLUTE AUTO 0.4 x10^3/uL (0.0-0.5); EOSINOPHILS PERCENT AUTO 2.8 % (0.0-4.0); HEMATOCRIT 40.9 % (33.0-47.0); HEMOGLOBIN 13.4 g/dL (12.0-16.0); IMMATURE GRAN ABSOLUTE AUTO 0.26 x10^3/uL (0.00-0.07); LYMPHOCYTES ABSOLUTE AUTO 3.5 x10^3/uL (1.0-4.8); LYMPHOCYTES PERCENT AUTO 26.1 % (25.0-50.0); MEAN CORPUSCULAR HEMOGLOBIN 30.7 pg (26.0-32.0); MEAN CORPUSCULAR HGB CONC 32.8 g/dL (32.0-36.0); MEAN CORPUSCULAR VOLUME 93.6 fL (78.0-93.0); MONOCYTES ABSOLUTE AUTO 0.7 x10^3/uL (0.0-0.8); MONOCYTES PERCENT AUTO 5.3 % (2.0-11.0); NEUTROPHILS ABSOLUTE AUTO 8.5 x10^3/uL (1.8-7.7); NEUTROPHILS PERCENT AUTO 63.4 % (50.0-80.0); PLATELET COUNT,PLT 372 x10^3/uL (130-400); RED BLOOD CELL COUNT 4.37 x10^6/uL (4.00-5.50); WHITE BLOOD CELL COUNT,WBC 13.3 x10^3/uL (4.0-10.0)
[2023-03-29] MEDS: Ondansetron 4 MG/2 ML SDV IVPUSH ONE ×2 (10:52→16:08)
[2023-03-29] MEDS: Lactated Ringers 1,000 ML IV ONE ×2 (10:52→16:09)
[2023-03-29] MEDS: HYDROmorphone 0.5 MG/0.5 ML Syringe IVPUSH ONE (10:54)
[2023-03-29 11:13] LABS: PTT,PARTIAL THROMBOPLSTIN TIME 24.7 SEC (23.6-33.6)
[2023-03-29 11:14] LABS: ALANINE AMINOTRANSFERASE,ALT 52 U/L (14-59); ALBUMIN 3.1 g/dL (3.4-5.0); ALKALINE PHOSPHATASE 254 U/L (46-116); ASPARTATE AMNIOTRANSFERASE,AST 55 U/L (15-37); BILIRUBIN TOTAL 0.6 mg/dL (0.2-1.0); BLOOD UREA NITROGEN,BUN 53 mg/dL (7-18); C-REACTIVE PROTEIN 2.05 mg/dL (<=0.50); CALCIUM 9.9 mg/dL (8.5-10.1); CARBON DIOXIDE,CO2 24 mmol/L (21-32); CHLORIDE,CL 103 mmol/L (98-107); CREATININE 1.8 mg/dL (0.55-1.02); GLUCOSE RANDOM 222 mg/dL (70-99); LIPASE 200 U/L (19-71); POTASSIUM,K 4.6 mmol/L (3.5-5.1); PROTEIN TOTAL,TP 7.5 g/dL (6.4-8.2); SODIUM,NA 140 mmol/L (136-145)
[2023-03-29 11:16] LABS: LACTIC ACID 1.7 mmol/L (0.4-2.0)
[2023-03-29 11:16] LABS: APPEARANCE,URINE SLIGHTLY CLOUDY (CLEAR); BILIRUBIN,URINE NEGATIVE (NEGATIVE); COLOR,URINE YELLOW (YELLOW); GLUCOSE,URINE NEGATIVE (NEGATIVE); KETONES,URINE NEGATIVE (NEGATIVE); LEUKOCYTE ESTERASE,URINE MODERATE (NEGATIVE); NITRITE,URINE POSITIVE (NEGATIVE); OCCULT BLOOD,URINE NEGATIVE (NEGATIVE); PH,URINE 8.5 (5.0-8.0); PROTEIN,URINE NEGATIVE (NEGATIVE); UROBILINOGEN,URINE 0.2 EU/dL (0.2)
[2023-03-29 11:17] LABS: ANION GAP 17.6 mmol/L (5-15); ESTIMATED GFR 35 mL/min (>=60)
[2023-03-29 11:33] LABS: BACTERIA,URINE MANY /HPF (NOT SEEN); RBC,URINE 0-5 /HPF (NOT SEEN); SQUAMOUS EPITHELIAL CELLS,UR FEW /HPF (NOT SEEN)
[2023-03-29] MEDS: cefTRIAXone 1 GM Vial IVPUSH ONE (11:35)
[2023-03-29] MEDS: Iopamidol 612 MG/ML 100 ML Bottle IVPUSH ONE (12:03)
[2023-03-29] MEDS ORDERED: Lactated Ringers 1,000 ML IV ONE (12:56)
[2023-03-29] MEDS: HYDROmorphone 0.5 MG/0.5 ML Syringe IVPUSH PRN (16:11)
[2023-03-30] MEDS ORDERED: cefTRIAXone 1 GM Vial IVPUSH SCH (09:00)
== END 2023-03-29 16:55 | disposition home or self-care (01) ==
LOC: VM.ED 10:35 → VM.MS 14:47
PROVIDERS: ADMIT Physician Assistant; ATTEND Physician Assistant
DX: K86.1 Other chronic pancreatitis (principal); E11.40 Type 2 diabetes mellitus with diabetic neuropathy, unspecified; I10 Essential (primary) hypertension; E03.9 Hypothyroidism, unspecified; F31.9 Bipolar disorder, unspecified; E78.00 Pure hypercholesterolemia, unspecified; E66.9 Obesity, unspecified; K21.9 Gastro-esophageal reflux disease without esophagitis; Z79.4 Long term (current) use of insulin; Z79.890 Hormone replacement therapy; Z79.899 Other long term (current) drug therapy
CPT/HCPCS: 74177; 80053; 81001; 81025; 82140; 83605; 83690; 83735; 85025; 85610; 85730; 86140; 87070; 87086; 87088; 87186; 96361; 96374; 96375; 96376; 99285; G0378; J0696; J1170; J2405; J7120; Q9967

== ENCOUNTER 2023-04-12 18:47 | Inpatient (IN) | payer MEDICAID ==
[2023-04-12] MEDS: Sodium Chloride 0.9% 1,000 ML IV ONE (19:50)
[2023-04-12] MEDS: HYDROmorphone 0.5 MG/0.5 ML Syringe IVPUSH ONE ×2 (19:50→22:00)
[2023-04-12] MEDS: Iopamidol 612 MG/ML 100 ML Bottle IVPUSH ONE (20:21)
[2023-04-12 20:30] LABS: APPEARANCE,URINE CLEAR (CLEAR); BILIRUBIN,URINE NEGATIVE (NEGATIVE); COLOR,URINE YELLOW (YELLOW); GLUCOSE,URINE NEGATIVE (NEGATIVE); KETONES,URINE NEGATIVE (NEGATIVE); LEUKOCYTE ESTERASE,URINE MODERATE (NEGATIVE); NITRITE,URINE POSITIVE (NEGATIVE); OCCULT BLOOD,URINE NEGATIVE (NEGATIVE); PH,URINE 6.5 (5.0-8.0); PROTEIN,URINE NEGATIVE (NEGATIVE); UROBILINOGEN,URINE 0.2 EU/dL (0.2)
[2023-04-12] MEDS: cefTRIAXone 1 GM Vial IVPUSH ONE (20:37)
[2023-04-12 20:38] LABS: RBC,URINE 0-5 /HPF (NOT SEEN)
[2023-04-12 20:39] LABS: BACTERIA,URINE FEW /HPF (NOT SEEN); MUCUS,URINE NOT SEEN /LPF (NOT SEEN); SQUAMOUS EPITHELIAL CELLS,UR FEW /HPF (NOT SEEN)
[2023-04-12] MEDS: Piperacillin/Tazobactam 3.375 GM in Sodium Chloride 0.9% 100 ML IV ONE (21:25)
[2023-04-12] MEDS: Sodium Chloride 0.9% 1,000 ML IV SCH (21:57)
[2023-04-13] MEDS ORDERED: Ondansetron 4 MG/2 ML SDV IV PRN (00:01)
[2023-04-13] MEDS: 50% Dextrose in Water 50 ML Syringe IVPUSH PRN (00:58)
[2023-04-13] MEDS: HYDROmorphone 0.5 MG/0.5 ML Syringe IVPUSH PRN (01:07)
[2023-04-13] MEDS: Piperacillin/Tazobactam 3.375 GM in Sodium Chloride 0.9% 100 ML IV SCH (02:48)
[2023-04-13] MEDS: Hydrocortisone Sodium Succinate 100 MG/2 ML SDV IVPUSH SCH (04:13)
[2023-04-13] MEDS: Gabapentin 300 MG Cap PO SCH ×2 (04:15→04:43)
[2023-04-13] MEDS: Topiramate 25 MG Tab PO SCH (04:27)
[2023-04-13] MEDS: Pantoprazole 40 MG Vial IVPUSH SCH (04:41)
[2023-04-13 06:55] LABS: BASOPHILS PERCENT AUTO 0.2 % (0.2-1.2); EOSINOPHILS ABSOLUTE AUTO 0.3 x10^3/uL (0.0-0.5); EOSINOPHILS PERCENT AUTO 1.5 % (0.0-4.0); HEMATOCRIT 33.1 % (33.0-47.0); HEMOGLOBIN 11.2 g/dL (12.0-16.0); IMMATURE GRAN ABSOLUTE AUTO 0.17 x10^3/uL (0.00-0.07); LYMPHOCYTES ABSOLUTE AUTO 3.2 x10^3/uL (1.0-4.8); LYMPHOCYTES PERCENT AUTO 16.6 % (25.0-50.0); MEAN CORPUSCULAR HEMOGLOBIN 31.6 pg (26.0-32.0); MEAN CORPUSCULAR HGB CONC 33.8 g/dL (32.0-36.0); MEAN CORPUSCULAR VOLUME 93.5 fL (78.0-93.0); MONOCYTES ABSOLUTE AUTO 1.5 x10^3/uL (0.0-0.8); MONOCYTES PERCENT AUTO 7.8 % (2.0-11.0); NEUTROPHILS ABSOLUTE AUTO 14.2 x10^3/uL (1.8-7.7); PLATELET COUNT,PLT 347 x10^3/uL (130-400); RED BLOOD CELL COUNT 3.54 x10^6/uL (4.00-5.50)
[2023-04-13 07:11] LABS: WHITE BLOOD CELL COUNT,WBC 19.5 x10^3/uL (4.0-10.0)
[2023-04-13 07:14] LABS: A/G RATIO 0.55; ALBUMIN 2.4 g/dL (3.4-5.0); BILIRUBIN TOTAL 0.9 mg/dL (0.2-1.0); CALCIUM 9.2 mg/dL (8.5-10.1); CREATININE 1.4 mg/dL (0.55-1.02); EST CRCL DRUG DOSING (CG) 43.36 mL/min; POTASSIUM,K 4.1 mmol/L (3.5-5.1); PROTEIN TOTAL,TP 6.8 g/dL (6.4-8.2)
[2023-04-13 07:16] LABS: ANION GAP 21.1 mmol/L (5-15)
[2023-04-13] MEDS ORDERED: Sennosides 8.6 MG Tab PO PRN (09:04)
[2023-04-13] MEDS ORDERED: Bisacodyl 10 MG Supp RECTAL PRN (09:04)
[2023-04-13] MEDS ORDERED: Polyethylene Glycol 3350 Powder 17 GM Packet PO PRN (09:04)
[2023-04-13] MEDS ORDERED: Calcium Carbonate 750 MG Tab.Chew PO PRN (09:04)
[2023-04-13] MEDS ORDERED: Acetaminophen 325 MG Tab PO PRN (09:04)
[2023-04-13] MEDS ORDERED: Vitamins A and D Oint 113 GM Tube TOP PRN (09:04)
[2023-04-13 09:13] LABS: MAGNESIUM 1.7 mg/dL (1.8-2.4)
[2023-04-13] MEDS ORDERED: [UNRECOGNIZED DRUG - REMARK] TOP SCH (09:15)
[2023-04-13] MEDS ORDERED: Simethicone 80 MG Tab.Chew PO PRN (09:35)
[2023-04-13] MEDS ORDERED: Hypromellose 0.3% Ophth Soln 15 ML Bottle EYEBOTH PRN (09:37)
[2023-04-13 09:53] LABS: CORONAVIRUS COVID-19 NAA NEGATIVE (NEGATIVE); INFLUENZA A NAA NEGATIVE (NEGATIVE); INFLUENZA B NAA NEGATIVE (NEGATIVE); RESPIRATORY SYNCYTIAL VIR NAA NEGATIVE (NEGATIVE)
[2023-04-13] MEDS: Metoprolol Tartrate 25 MG Tab PO SCH (12:04)
[2023-04-13] MEDS: Lidocaine 4% 1 each Patch TOP SCH (12:05)
[2023-04-13] MEDS: Levothyroxine 125 MCG Tab PO SCH (12:05)
[2023-04-13] MEDS: Gemfibrozil 600 MG Tab PO SCH (12:05)
[2023-04-13] MEDS: Vitamins A and D Oint 113 GM Tube TOP SCH (12:06)
[2023-04-13] MEDS: Mineral Oil/Petrolatum/Phenylephrine/Shark Liver Oil Oint 57 GM Tube TOP SCH (13:49)
[2023-04-13] MEDS: Magnesium Sulfate/Water 2 GM in Premix Bag 1 BAG IV ONE (14:12)
[2023-04-13] MEDS ORDERED: Sodium Chloride 0.9% 1,000 ML IV SCH (15:30)
[2023-04-13] MEDS ORDERED: hydrOXYzine HCl 25 MG Tab PO SCH (21:00)
[2023-04-13] MEDS ORDERED: Topiramate 25 MG Tab PO SCH ×2 (21:00)
[2023-04-13] MEDS ORDERED: Metoprolol Tartrate 25 MG Tab PO SCH (21:00)
[2023-04-13] MEDS ORDERED: Melatonin 3 MG Tab PO SCH (21:00)
[2023-04-14] MEDS ORDERED: Magnesium Oxide 400 MG Tab PO SCH (09:00)
== END 2023-04-13 17:13 | disposition short-term general hospital (02) | DRG 439 ==
LOC: VM.ED 18:47 → VM.MS 23:35
PROVIDERS: ADMIT Internal Medicine; ATTEND Internal Medicine
DX: A41.9 Sepsis, unspecified organism (principal); R18.8 Other ascites; K85.90 Acute pancreatitis without necrosis or infection, unspecified; E23.0 Hypopituitarism; E11.40 Type 2 diabetes mellitus with diabetic neuropathy, unspecified; E27.40 Unspecified adrenocortical insufficiency; E87.1 Hypo-osmolality and hyponatremia; N17.9 Acute kidney failure, unspecified; E78.00 Pure hypercholesterolemia, unspecified; I10 Essential (primary) hypertension; K21.9 Gastro-esophageal reflux disease without esophagitis; F41.9 Anxiety disorder, unspecified; Z88.6 Allergy status to analgesic agent; Z88.5 Allergy status to narcotic agent; F31.9 Bipolar disorder, unspecified; E03.9 Hypothyroidism, unspecified; G47.00 Insomnia, unspecified; E11.42 Type 2 diabetes mellitus with diabetic polyneuropathy; K86.89 Other specified diseases of pancreas; E66.01 Morbid (severe) obesity due to excess calories; M81.0 Age-related osteoporosis without current pathological fracture; Z96.649 Presence of unspecified artificial hip joint; B18.2 Chronic viral hepatitis C; E11.65 Type 2 diabetes mellitus with hyperglycemia; N31.9 Neuromuscular dysfunction of bladder, unspecified; F10.10 Alcohol abuse, uncomplicated; E11.649 Type 2 diabetes mellitus with hypoglycemia without coma; G40.909 Epilepsy, unspecified, not intractable, without status epilepticus; Z88.8 Allergy status to other drugs, medicaments and biological substances; Z79.4 Long term (current) use of insulin; Z79.899 Other long term (current) drug therapy; Z68.37 Body mass index [BMI] 37.0-37.9, adult; Z86.16 Personal history of COVID-19; Z90.49 Acquired absence of other specified parts of digestive tract; Z87.891 Personal history of nicotine dependence; Z98.890 Other specified postprocedural states
CPT/HCPCS: 0241U; 36415; 71045; 74177; 80053; 81001; 82947; 83605; 83690; 83735; 84145; 85025; 86140; 87040; 87070; 87086; 87088; 87186; 96361; 96365; 96375; 96376; 99284; 99285-25; A9270-GY; C9113; J0696; J1170; J1720; J2543; J3475; J3490; J7030; Q9967

== ENCOUNTER 2023-06-16 12:48 | Emergency (ER) | payer MEDICAID ==
[2023-06-16] MEDS ORDERED: Sodium Chloride 0.9% 10 ML Syringe FLUSH PRN (12:53)
[2023-06-16] MEDS: Sodium Chloride 0.9% 1,000 ML IV ONE ×2 (12:57→13:33)
[2023-06-16 13:07] LABS: BASOPHILS ABSOLUTE AUTO 0.1 x10^3/uL (0.0-0.2); BASOPHILS PERCENT AUTO 0.5 % (0.2-1.2); EOSINOPHILS ABSOLUTE AUTO 0.2 x10^3/uL (0.0-0.5); EOSINOPHILS PERCENT AUTO 1.5 % (0.0-4.0); HEMATOCRIT 35.9 % (33.0-47.0); HEMOGLOBIN 11.7 g/dL (12.0-16.0); IMMATURE GRAN ABSOLUTE AUTO 0.48 x10^3/uL (0.00-0.07); LYMPHOCYTES ABSOLUTE AUTO 2.2 x10^3/uL (1.0-4.8); LYMPHOCYTES PERCENT AUTO 18.5 % (25.0-50.0); MEAN CORPUSCULAR HEMOGLOBIN 30.7 pg (26.0-32.0); MEAN CORPUSCULAR HGB CONC 32.6 g/dL (32.0-36.0); MEAN CORPUSCULAR VOLUME 94.2 fL (78.0-93.0); MONOCYTES ABSOLUTE AUTO 0.4 x10^3/uL (0.0-0.8); MONOCYTES PERCENT AUTO 3.3 % (2.0-11.0); NEUTROPHILS ABSOLUTE AUTO 8.6 x10^3/uL (1.8-7.7); NEUTROPHILS PERCENT AUTO 72.2 % (50.0-80.0); PLATELET COUNT,PLT 334 x10^3/uL (130-400); RED BLOOD CELL COUNT 3.81 x10^6/uL (4.00-5.50); WHITE BLOOD CELL COUNT,WBC 11.9 x10^3/uL (4.0-10.0)
[2023-06-16 13:27] LABS: A/G RATIO 0.47; ALANINE AMINOTRANSFERASE,ALT 39 U/L (14-59); ALBUMIN 2.5 g/dL (3.4-5.0); ALKALINE PHOSPHATASE 518 U/L (46-116); ASPARTATE AMNIOTRANSFERASE,AST 50 U/L (15-37); BILIRUBIN TOTAL 0.6 mg/dL (0.2-1.0); BLOOD UREA NITROGEN,BUN 18 mg/dL (7-18); CALCIUM 8.8 mg/dL (8.5-10.1); CARBON DIOXIDE,CO2 17 mmol/L (21-32); CHLORIDE,CL 104 mmol/L (98-107); CREATININE 1.3 mg/dL (0.55-1.02); GLUCOSE RANDOM 399 mg/dL (70-99); LIPASE 194 U/L (19-71); POTASSIUM,K 4.3 mmol/L (3.5-5.1); PROTEIN TOTAL,TP 7.8 g/dL (6.4-8.2); SODIUM,NA 139 mmol/L (136-145)
[2023-06-16 13:28] LABS: ANION GAP 22.3 mmol/L (5-15); ESTIMATED GFR 51 mL/min (>=60)
[2023-06-16 13:38] LABS: APPEARANCE,URINE CLEAR (CLEAR); BILIRUBIN,URINE NEGATIVE (NEGATIVE); COLOR,URINE YELLOW (YELLOW); GLUCOSE,URINE NEGATIVE (NEGATIVE); KETONES,URINE NEGATIVE (NEGATIVE); LEUKOCYTE ESTERASE,URINE NEGATIVE (NEGATIVE); NITRITE,URINE NEGATIVE (NEGATIVE); OCCULT BLOOD,URINE NEGATIVE (NEGATIVE); PROTEIN,URINE NEGATIVE (NEGATIVE); UROBILINOGEN,URINE 0.2 EU/dL (0.2)
[2023-06-16 14:39] LABS: A/G RATIO 0.49; ALANINE AMINOTRANSFERASE,ALT 37 U/L (14-59); ALBUMIN 2.2 g/dL (3.4-5.0); ALKALINE PHOSPHATASE 459 U/L (46-116); ASPARTATE AMNIOTRANSFERASE,AST 47 U/L (15-37); BILIRUBIN TOTAL 0.4 mg/dL (0.2-1.0); BLOOD UREA NITROGEN,BUN 17 mg/dL (7-18); CALCIUM 8.2 mg/dL (8.5-10.1); CARBON DIOXIDE,CO2 17 mmol/L (21-32); CHLORIDE,CL 109 mmol/L (98-107); CREATININE 1.3 mg/dL (0.55-1.02); GLUCOSE RANDOM 286 mg/dL (70-99); LIPASE 184 U/L (19-71); PROTEIN TOTAL,TP 6.7 g/dL (6.4-8.2); SODIUM,NA 141 mmol/L (136-145)
[2023-06-16 14:40] LABS: ESTIMATED GFR 51 mL/min (>=60)
[2023-06-16] MEDS: oxyCODONE 5 MG Tab PO ONE (15:15)
== END 2023-06-16 16:03 | disposition home or self-care (01) ==
LOC: VM.ED 12:48
DX: G89.29 Other chronic pain (principal); R10.9 Unspecified abdominal pain; E11.65 Type 2 diabetes mellitus with hyperglycemia; E86.0 Dehydration; I10 Essential (primary) hypertension; K21.9 Gastro-esophageal reflux disease without esophagitis; E78.00 Pure hypercholesterolemia, unspecified; E66.9 Obesity, unspecified; E03.9 Hypothyroidism, unspecified; Z88.5 Allergy status to narcotic agent; Z88.6 Allergy status to analgesic agent; Z88.8 Allergy status to other drugs, medicaments and biological substances; Z79.4 Long term (current) use of insulin; Z79.84 Long term (current) use of oral hypoglycemic drugs; Z79.899 Other long term (current) drug therapy; Z86.16 Personal history of COVID-19; Z90.49 Acquired absence of other specified parts of digestive tract
CPT/HCPCS: 36415; 80053; 81003; 81025; 83690; 85025; 96360; 99284; 99284-25; A9270-GY; J7030